=== PATIENT | female | born 1935 | race Caucasian/White ===

== ENCOUNTER 2016-08-29 01:19 | Inpatient (IN) | payer MEDICARE, BC ==
--- NOTE | 2016-08-29 01:35 | EDM.PDOC ---
ED HISTORY OF PRESENT ILLNESS - General Stated Complaint: COMING BY AMBULANCE Time Seen by Provider: 08/29/16 01:20 Source of Information: Reports: Patient, EMS History Limitations: Reports: Respiratory distress - History of Present Illness INITIAL COMMENTS - FREE TEXT/NARRATIVE: This 81 yo female patient was brought to the ED by [facility] and [facility] due to increased shortness of breath. The patient reports her shortness of breath started yesterday morning and has been getting worse since that time. Upon arrival at the [facility] area, EMS reports the patient's oxygen saturation was 79%. EMS initially placed the patient no a nasal cannula at 3 lpm, changed to a non-rebreather mask at 15 lpm (brought saturation up to 90%), and then started the patient on CPAP (increased her saturation to upper 90's). By the time the patient arrived in the ED, the patient was speaking in full sentences with out difficulties. The patient has a history of a fib, and COPD. The patient does have a defibrillator inplanted. Symptom Onset Date: 08/28/16 Timing/Duration: Reports: Constant, Getting worse Severity: moderate Location, General: Reports: generalized Quality: Reports: Other Improves with: Reports: Other (CPAP) Worsens with: Reports: Movement Associated Symptoms (General): Reports: shortness of breath, weakness Treatments RESIDENTIAL TECH: Reports: Breathing treatments, Oxygen - Related Data Allergies/ADRs: Allergies Allergy/AdvReac Type Severity Reaction Status Date / Time No Known Allergies Allergy Verified 08/29/16 01:24 Home Meds: Home Meds Albuterol [Proair HFA] 2 oz PO QID PRN 06/13/14 [History] Digoxin [Digoxin] 125 mcg PO DAILY 06/13/14 [History] Furosemide [Furosemide] 20 mg PO DAILY 06/13/14 [History] Levothyroxine 112 mcg PO DAILY 06/13/14 [History] Warfarin [Coumadin] 4 mg PO ASDIRECTED 06/13/14 [History] Lisinopril 10 mg PO DAILY 08/29/16 [History] Metoprolol Succinate 100 mg PO DAILY 08/29/16 [History] Simvastatin [Simvastatin] 20 mg PO DAILY 08/29/16 [History] Spironolactone [Aldactone] 25 mg PO DAILY 08/29/16 [History] Past Medical History Cardiovascular History: Reports: Bacterial endocarditis, Heart Failure Respiratory History: Reports: None Genitourinary History: Reports: None Musculoskeletal History: Reports: None Neurological History: Reports: None Psychiatric History: Reports: None Endocrine/Metabolic History: Reports: None Hematologic History: Reports: None Immunologic History: Reports: None Oncologic (Cancer) History: Reports: None Dermatologic History: Reports: None - Infectious Disease History Infectious Disease History: Reports: Chicken pox, Measles, Mumps - Past Surgical History Cardiovascular Surgical History: Reports: AICD Respiratory Surgical History: Reports: None GI Surgical History: Reports: Cholecystectomy, Other (see below) Other GI Surgeries/Procedures: mass removed from abdomen, pt unsure of what it was Female Surgical History: Reports: None Endocrine Surgical History: Reports: None Neurological Surgical History: Reports: None Musculoskeletal Surgical History: Reports: None Oncologic Surgical History: Reports: None Dermatological Surgical History: Reports: None Social & Family History - Family History Family Medical History: Noncontributory - Tobacco Use Smoking Status *Q: Current Every Day Smoker Years of Tobacco use: 60 Packs/Tins Daily: 1 - Recreational Drug Use Recreational Drug Use: No ED ROS GENERAL - Review of Systems Review Of Systems: ROS reveals no pertinent complaints other than HPI. ED EXAM, GENERAL - Physical Exam Exam: See Below Exam Limited By: No limitations General Appearance: alert, WD/WN, moderate distress, thin Eye Exam: bilateral eye: EOMI, normal inspection, PERRL Ears: normal external exam, normal canal, hearing grossly normal, normal TMs Nose: normal inspection, normal mucosa, no blood Throat/Mouth: Normal inspection, Normal lips, Normal teeth, Normal gums, Normal oropharynx, Normal voice, No airway compromise Head: atraumatic, normocephalic Neck: normal inspection, supple, non-tender, full range of motion Respiratory/Chest: decreased breath sounds Cardiovascular: tachycardia, irregularly irregular GI/Abdominal: normal bowel sounds, soft, non tender, no organomegaly, no distention, no abnormal bruit, no mass (Female) Exam: Deferred Rectal (Female) Exam: Deferred Back Exam: normal inspection Extremities: pedal edema (2+ bilateral lower extremities) Neurological: alert, oriented, CN II-XII intact, normal cognition, normal gait, normal reflexes, no motor/sensory deficits Psychiatric: normal affect, normal mood Skin Exam: Warm, Dry, Intact, Normal color, No rash Lymphatic: no adenopathy Course - Vital Signs Last Recorded V/S: Last Vital Signs Temp 38.0 C 08/29/16 01:19 Pulse 123 H 08/29/16 02:00 Resp 23 H 08/29/16 01:19 BP 92/73 08/29/16 02:00 Pulse Ox 95 08/29/16 01:19 - Orders/Labs/Meds Orders: Active Orders 24 hr Category Date Time Status EKG Documentation Completion [RC] URGENT Care 08/29/16 01:20 Active RT BiPAP/CPAP [RC] ASDIRECTED Care 08/29/16 02:01 Active Chest 1V Frontal [CR] Urgent Exams 08/29/16 01:21 Taken CULTURE BLOOD [BC] Stat Lab 08/29/16 01:25 Received CULTURE BLOOD [BC] Stat Lab 08/29/16 01:30 Results Diltiazem [Cardizem] 100 mg Med 08/29/16 02:00 Active Sodium Chloride 0.9% [Normal Saline] 100 ml IV TITRATE Sodium Chloride 0.9% [Normal Saline] 1,000 ml Med 08/29/16 02:15 Active IV ASDIRECTED Blood Culture x2 Reflex Set [OM.PC] Stat Oth 08/29/16 01:20 Ordered Medication Orders Diltiazem HCl 100 mg/ Sodium (Chloride) 100 mls @ 5 mls/hr IV TITRATE EMMETT; 5 MG /HR PRN Reason: Protocol Last Admin: 08/29/16 02:00 Dose: 5 mls/hr Sodium Chloride (Normal Saline) 1,000 mls @ 50 mls/hr IV ASDIRECTED EMMETT Last Admin: 08/29/16 02:08 Dose: 50 mls/hr Labs: Laboratory Tests 08/29/16 08/29/16 08/29/16 Range/Units 01:25 01:25 01:25 WBC (5.0-10.0) 10^3/uL RBC (4.2-5.4) 10^6/uL Hgb (12.0-16.0) g/dL Hct (37.0-47.0) % MCV (80-100) fL MCH (27.0-34.0) pg MCHC (33.0-35.0) g/dL Plt Count (150-450) 10^3/uL Neut % (Auto) (42.2-75.2) % Lymph % (Auto) (20.5-50.1) % [place] % (Auto) (2-8) % Eos % (Auto) (1.0-3.0) % Baso % (Auto) (0.0-1.0) % PT 23.3 H (9.0-12.0) SEC INR 2.3 H (0.9-1.2) ABG pH (7.35-7.45) ABG pCO2 (35-45) mmHg ABG pO2 (70-100) mmHg ABG HCO3 (22-26) mmol/L ABG O2 Saturation (95-100) % ABG Base Excess ((-2)-(+3)) mmol/L Caleb Test O2 Delivery Device Sodium (135-145) mmol/L Potassium (3.6-5.0) mmol/L Chloride (101-111) mmol/L Carbon Dioxide (21.0-31.0) mmol/L Anion Gap BUN (7-18) mg/dL Creatinine (0.6-1.3) mg/dL Est Cr Clr Drug Dosing mL/min Estimated GFR (MDRD) BUN/Creatinine Ratio Glucose (74-105) mg/dL Lactic Acid 1.1 (0.5-2.2) mmol/L Calcium (8.4-10.2) mg/dl Total Bilirubin (0.2-1.0) mg/dL AST (10-42) IU/L ALT (10-60) IU/L Alkaline Phosphatase (42-121) IU/L Troponin I (0.00-0.02) ng/ml B-Natriuretic Peptide 175 H (0-100) pg/ml Total Protein (6.7-8.2) g/dl Albumin (3.2-5.5) g/dl Globulin Albumin/Globulin Ratio Digoxin (0-2.5) ng/ml 08/29/16 08/29/16 08/29/16 Range/Units 01:25 01:25 01:25 WBC 5.0 (5.0-10.0) 10^3/uL RBC 3.84 L (4.2-5.4) 10^6/uL Hgb 12.8 (12.0-16.0) g/dL Hct 38.3 (37.0-47.0) % MCV 99.7 (80-100) fL MCH 33.3 (27.0-34.0) pg MCHC 33.4 (33.0-35.0) g/dL Plt Count 139 L (150-450) 10^3/uL Neut % (Auto) 93.2 H (42.2-75.2) % Lymph % (Auto) 6.0 L (20.5-50.1) % [place] % (Auto) 0.2 L (2-8) % Eos % (Auto) 0.4 L (1.0-3.0) % Baso % (Auto) 0.2 (0.0-1.0) % PT (9.0-12.0) SEC INR (0.9-1.2) ABG pH (7.35-7.45) ABG pCO2 (35-45) mmHg ABG pO2 (70-100) mmHg ABG HCO3 (22-26) mmol/L ABG O2 Saturation (95-100) % ABG Base Excess ((-2)-(+3)) mmol/L Caleb Test O2 Delivery Device Sodium 139 (135-145) mmol/L Potassium 3.7 (3.6-5.0) mmol/L Chloride 103 (101-111) mmol/L Carbon Dioxide 30.0 (21.0-31.0) mmol/L Anion Gap 9.7 BUN 16 (7-18) mg/dL Creatinine 0.8 (0.6-1.3) mg/dL Est Cr Clr Drug Dosing 50.94 mL/min Estimated GFR (MDRD) > 60 BUN/Creatinine Ratio 20.00 Glucose 110 H (74-105) mg/dL Lactic Acid (0.5-2.2) mmol/L Calcium 8.6 (8.4-10.2) mg/dl Total Bilirubin 0.6 (0.2-1.0) mg/dL AST 25 (10-42) IU/L ALT 21 (10-60) IU/L Alkaline Phosphatase 70 (42-121) IU/L Troponin I 0.02 (0.00-0.02) ng/ml B-Natriuretic Peptide (0-100) pg/ml Total Protein 6.9 (6.7-8.2) g/dl Albumin 3.9 (3.2-5.5) g/dl Globulin 3.0 Albumin/Globulin Ratio 1.30 Digoxin 0.8 (0-2.5) ng/ml 08/29/16 Range/Units 02:17 WBC (5.0-10.0) 10^3/uL RBC (4.2-5.4) 10^6/uL Hgb (12.0-16.0) g/dL Hct (37.0-47.0) % MCV (80-100) fL MCH (27.0-34.0) pg MCHC (33.0-35.0) g/dL Plt Count (150-450) 10^3/uL Neut % (Auto) (42.2-75.2) % Lymph % (Auto) (20.5-50.1) % [place] % (Auto) (2-8) % Eos % (Auto) (1.0-3.0) % Baso % (Auto) (0.0-1.0) % PT (9.0-12.0) SEC INR (0.9-1.2) ABG pH 7.36 (7.35-7.45) ABG pCO2 49 H (35-45) mmHg ABG pO2 79 (70-100) mmHg ABG HCO3 27.0 H (22-26) mmol/L ABG O2 Saturation 95 (95-100) % ABG Base Excess 1 ((-2)-(+3)) mmol/L Caleb Test Positive O2 Delivery Device Cpap Sodium (135-145) mmol/L Potassium (3.6-5.0) mmol/L Chloride (101-111) mmol/L Carbon Dioxide (21.0-31.0) mmol/L Anion Gap BUN (7-18) mg/dL Creatinine (0.6-1.3) mg/dL Est Cr Clr Drug Dosing mL/min Estimated GFR (MDRD) BUN/Creatinine Ratio Glucose (74-105) mg/dL Lactic Acid (0.5-2.2) mmol/L Calcium (8.4-10.2) mg/dl Total Bilirubin (0.2-1.0) mg/dL AST (10-42) IU/L ALT (10-60) IU/L Alkaline Phosphatase (42-121) IU/L Troponin I (0.00-0.02) ng/ml B-Natriuretic Peptide (0-100) pg/ml Total Protein (6.7-8.2) g/dl Albumin (3.2-5.5) g/dl Globulin Albumin/Globulin Ratio Digoxin (0-2.5) ng/ml Meds: Medications Generic Name Dose Route Start Last Admin Trade Name Freq PRN Reason Stop Dose Admin Diltiazem HCl 100 mg/ Sodium 100 mls @ 5 mls/hr 08/29/16 02:00 08/29/16 02:00 Chloride IV 5 mls/hr TITRATE EMMETT Administration Protocol 5 MG/HR Sodium Chloride 1,000 mls @ 50 mls/hr 08/29/16 02:15 08/29/16 02:08 Normal Saline IV 50 mls/hr ASDIRECTED EMMETT Administration Discontinued Medications Generic Name Dose Route Start Last Admin Trade Name Freq PRN Reason Stop Dose Admin Diltiazem HCl 10 mg 08/29/16 01:36 08/29/16 01:39 Diltiazem IVPUSH 08/29/16 01:37 10 mg ONETIME ONE Administration Departure - Departure Time of Disposition: 02:44 Disposition: Admitted As Inpatient 66 Condition: poor Clinical Impression: Atrial fibrillation with RVR Care Plan Goals: Discussed the examination, lab, EKG and x-ray results with Dr. Bocanegra. Dr. Bocanegra came to the ED to evaluate the patient. Dr. Bocanegra accepted the patient for continued evaluation and further management as an inpatient at [facility]. - My Orders Last 24 Hours: My Active Orders 08/29/16 01:20 EKG Documentation Completion [RC] URGENT Blood Culture x2 Reflex Set [OM.PC] Stat 08/29/16 01:21 Chest 1V Frontal [CR] Urgent 08/29/16 01:25 CULTURE BLOOD [BC] Stat 08/29/16 01:30 CULTURE BLOOD [BC] Stat 08/29/16 02:00 Diltiazem [Cardizem] 100 mg Sodium Chloride 0.9% [Normal Saline] 100 ml IV TITRATE 08/29/16 02:01 RT BiPAP/CPAP [RC] ASDIRECTED 08/29/16 02:15 Sodium Chloride 0.9% [Normal Saline] 1,000 ml IV ASDIRECTED - Assessment/Plan Last 24 Hours: My Active Orders 08/29/16 01:20 EKG Documentation Completion [RC] URGENT Blood Culture x2 Reflex Set [OM.PC] Stat 08/29/16 01:21 Chest 1V Frontal [CR] Urgent 08/29/16 01:25 CULTURE BLOOD [BC] Stat 08/29/16 01:30 CULTURE BLOOD [BC] Stat 08/29/16 02:00 Diltiazem [Cardizem] 100 mg Sodium Chloride 0.9% [Normal Saline] 100 ml IV TITRATE 08/29/16 02:01 RT BiPAP/CPAP [RC] ASDIRECTED 08/29/16 02:15 Sodium Chloride 0.9% [Normal Saline] 1,000 ml IV ASDIRECTED
[2016-08-29] MEDS ORDERED: Diltiazem 25 MG/5 ML SDV IVPUSH ONE (01:36)
[2016-08-29 01:54] LABS: CHLORIDE,CL 103 mmol/L (101-111); SODIUM,NA 139 mmol/L (135-145)
[2016-08-29] MEDS ORDERED: Diltiazem 100 MG in Sodium Chloride 0.9% 100 ML IV SCH (02:00)
[2016-08-29] MEDS ORDERED: Sodium Chloride 0.9% 1,000 ML IV SCH (02:15)
[2016-08-29 02:30] LABS: BASE EXCESS ARTERIAL 1 mmol/L ((-2)-(+3)); O2 DELIVERY DEVICE CPAP; O2 SATURATION ARTERIAL 95 % (95-100); PCO2 ARTERIAL 49 mmHg (35-45); PO2 ARTERIAL 79 mmHg (70-100)
[2016-08-29 02:31] LABS: ALLEN TEST POSITIVE
[2016-08-29] MEDS ORDERED: Albuterol 6.7 GM Inhaler INH PRN (03:01)
[2016-08-29] MEDS ORDERED: Docusate Sodium 100 MG Cap PO PRN (03:09)
[2016-08-29] MEDS ORDERED: Ondansetron 4 MG Tab.DIS PO PRN (03:09)
[2016-08-29] MEDS ORDERED: Zolpidem 5 MG Tab PO PRN (03:09)
--- NOTE | 2016-08-29 03:18 | PCM.HP ---
H&P History of Present Illness - General Date of Service: 08/29/16 Admit Problem/Dx: Admission Diagnosis/Problem Admission Diagnosis/Problem Afib, Atrial fibrillation Source of Information: Patient - History of Present Illness Initial Comments - Free Text/Narative: 81 year-old patient with the history of nonischemic cardiomyopathy, systolic congestive heart failure, atrial fibrillation, She has been having mild sore throat and nasal drainage Her had similar symptoms no fever Last evening developed sudden onset of moderate to severe shortness of breath, associated with palpitation. No chest pain, no lightheadedness The patient was seen by ambulance crew noted to have rapid atrial fibrillation She was noted to have hypoxemia and was started on CPAP In the ER the patient was started on Cardizem drip and the heart rate has improved - Related Data Allergies/Adverse Reactions: Allergies Allergy/AdvReac Type Severity Reaction Status Date / Time No Known Allergies Allergy Verified 08/29/16 01:24 Home Medications: Home Meds Albuterol [Proair HFA] 2 oz PO QID PRN 06/13/14 [History] Digoxin [Digoxin] 125 mcg PO DAILY 06/13/14 [History] Furosemide [Furosemide] 20 mg PO DAILY 06/13/14 [History] Levothyroxine 112 mcg PO DAILY 06/13/14 [History] Warfarin [Coumadin] 4 mg PO ASDIRECTED 06/13/14 [History] Lisinopril 10 mg PO DAILY 08/29/16 [History] Metoprolol Succinate 100 mg PO DAILY 08/29/16 [History] Simvastatin [Simvastatin] 20 mg PO DAILY 08/29/16 [History] Spironolactone [Aldactone] 25 mg PO DAILY 08/29/16 [History] Past Medical History Cardiovascular History: Reports: Bacterial endocarditis, Heart Failure Respiratory History: Reports: None Genitourinary History: Reports: None Musculoskeletal History: Reports: None Neurological History: Reports: None Psychiatric History: Reports: None Endocrine/Metabolic History: Reports: None Hematologic History: Reports: None Immunologic History: Reports: None Oncologic (Cancer) History: Reports: None Dermatologic History: Reports: None - Infectious Disease History Infectious Disease History: Reports: Chicken pox, Measles, Mumps - Past Surgical History Cardiovascular Surgical History: Reports: AICD Respiratory Surgical History: Reports: None GI Surgical History: Reports: Cholecystectomy, Other (see below) Other GI Surgeries/Procedures: mass removed from abdomen, pt unsure of what it was Female Surgical History: Reports: None Endocrine Surgical History: Reports: None Neurological Surgical History: Reports: None Musculoskeletal Surgical History: Reports: None Oncologic Surgical History: Reports: None Dermatological Surgical History: Reports: None Social & Family History - Family History Family Medical History: Noncontributory - Tobacco Use Smoking Status *Q: Current Every Day Smoker Years of Tobacco use: 60 Packs/Tins Daily: 1 Second Hand Smoke Exposure: Yes - Recreational Drug Use Recreational Drug Use: No H&P Review of Systems - Review of Systems: Review Of Systems: See Below General: Denies: fever, chills Pulmonary: Reports: Shortness of Breath. Denies: Wheezing Cardiovascular: Denies: chest pain Gastrointestinal: Denies: Abdominal pain Genitourinary: Denies: dysuria Psychiatric: Denies: confusion Exam - Exam Exam: See Below - Vital Signs Vital Signs: Last Vital Signs Temp 38.0 C 08/29/16 01:19 Pulse 123 H 08/29/16 02:00 Resp 23 H 08/29/16 01:19 BP 92/73 08/29/16 02:00 Pulse Ox 94 L 08/29/16 02:47 Weight: 58.513 kg - Exam General: alert, oriented Neck: supple Lungs: Clear to auscultation, Normal respiratory effort Cardiovascular: irregular rhythm, tachycardia Abdomen: normal bowel sounds, soft Extremities: normal inspection. No: edema Skin: warm, dry, intact Neuro Extensive - Mental Status: alert, oriented x3, normal mood/affect, normal cognition Psychiatric: alert, normal affect, normal mood - Patient Data Result Diagrams: 08/29/16 01:25 08/29/16 01:25 EKG INTERPRETATION EKG Date: 08/29/16 Rhythm: a-fib Rate (beats/min): 150 *Q Meaningful Use (ADM) - VTE *Q VTE Criteria *Q: - Stroke *Q Stroke Criteria *Q: - AMI *Q AMI Criteria *Q: - Problem List (1) Atrial fibrillation with RVR SNOMED Code(s): 971793114313525 ICD Code: I48.91 - UNSPECIFIED ATRIAL FIBRILLATION Status: Acute Current Visit: Yes Problem List Initiated/Reviewed/Updated: Yes Orders Last 24hrs: Active Orders 24 hr Category Date Time Status Patient Status [ADT] Routine ADT 08/29/16 03:09 Ordered Antiembolic Devices [RC] PER UNIT ROUTINE Care 08/29/16 03:11 Ordered Oxygen Therapy [RC] PRN Care 08/29/16 03:09 Ordered Peripheral IV Care [RC] . DIRECTED Care 08/29/16 03:11 Ordered Up With Assistance [RC] ASDIRECTED Care 08/29/16 03:09 Ordered VTE/DVT Education [RC] PER UNIT ROUTINE Care 08/29/16 03:09 Ordered Vital Signs [RC] Q4H Care 08/29/16 03:09 Ordered Regular Diet [DIET] Diet 08/29/16 Breakfast Ordered CULTURE SPUTUM + SMEAR [RM] Stat Lab 08/29/16 03:09 Uncollected Acetaminophen [Tylenol] Med 08/29/16 03:09 Ordered 650 mg PO Q4H PRN Docusate Sodium [Colace] Med 08/29/16 03:09 Ordered 100 mg PO BID PRN Ondansetron [Zofran ODT] Med 08/29/16 03:09 Ordered 4 mg PO Q6H PRN Sodium Chloride 0.9% [Saline Flush] Med 08/29/16 03:09 Ordered 10 ml FLUSH ASDIRECTED PRN Zolpidem [Ambien] Med 08/29/16 03:09 Ordered 5 mg PO BEDTIME PRN Peripheral IV Insertion Adult [OM.PC] Routine Oth 08/29/16 03:09 Ordered Saline Lock Insert [OM.PC] Routine Oth 08/29/16 03:09 Ordered Sequential Compression Device [OM.PC] Per Unit Routine Oth 08/29/16 03:10 Ordered Resuscitation Status Routine Resus Stat 08/29/16 03:09 Ordered Medication Orders Acetaminophen (Tylenol) 650 mg PO Q4H PRN PRN Reason: Pain (Mild 1-3)/fever Albuterol (Proventil Hfa) gm INH QID PRN PRN Reason: Shortness of Breath Digoxin (Lanoxin) 125 mcg PO DAILY EMMETT Docusate Sodium (Colace) 100 mg PO BID PRN PRN Reason: Constipation Furosemide (Lasix) 20 mg PO DAILY EMMETT Diltiazem HCl 100 mg/ Sodium (Chloride) 100 mls @ 5 mls/hr IV TITRATE EMMETT; 5 MG /HR PRN Reason: Protocol Last Admin: 08/29/16 02:00 Dose: 5 mls/hr Sodium Chloride (Normal Saline) 1,000 mls @ 50 mls/hr IV ASDIRECTED [facility] Last Admin: 08/29/16 02:08 Dose: 50 mls/hr Levothyroxine Sodium (Levothyroxine) 112 mcg PO DAILY [facility] Lisinopril (Prinivil) 10 mg PO DAILY [facility] Non-Formulary Medication (Metoprolol Succinate [Metoprolol Succinate]) 100 mg PO DAILY [facility] Non-Formulary Medication (Simvastatin [Simvastatin]) 20 mg PO DAILY [facility] Ondansetron HCl (Zofran Odt) 4 mg PO Q6H PRN PRN Reason: nausea, able to take PO Sodium Chloride (Saline Flush) 10 ml FLUSH ASDIRECTED PRN PRN Reason: Keep Vein Open Spironolactone (Aldactone) 25 mg PO DAILY [facility] Warfarin Sodium (Pharmacy To Dose - Warfarin) 1 dose .XX ASDIRECTED [facility] Zolpidem Tartrate (Ambien) 5 mg PO BEDTIME PRN PRN Reason: Sleep Assessment/Plan Comment:: Rapid atrial fibrillation Treat with Cardizem drip, target for heart less than 100 Continue metoprolol for rate control Continue anticoagulation with Coumadin Monitor INR daily, adjust Coumadin for target INR 2-3 Recheck troponin in the morning acute hypoxemic respiratory failure The chest x-ray appears clear Likely due to rapid atrial fibrillation we could take off of the patient's BiPAP she is saturating well on nasal cannula oxygen Will follow oxygen need Upper respiratory tract infection Likely viral Check sputum culture, blood cultures for now we'll hold antibiotics History of COPD No apparent exacerbation, will follow oxygen need, symptoms Dyslipidemia Zocor Chronic systolic congestive heart failure Appears with no acute exacerbation Continue to treat with Lasix, digoxin, lisinopril, spironolactone Hypothyroidism Treatment Synthroid DVT prophylaxis with full dose anticoagulation with Coumadin
[2016-08-29] MEDS ORDERED: Albuterol 0.083% 2.5 MG/3 ML Neb Soln NEB PRN (05:31)
[2016-08-29 06:41] LABS: CHLORIDE,CL 102 mmol/L (101-111); SODIUM,NA 137 mmol/L (135-145)
[2016-08-29] MEDS: Albuterol 0.083% 2.5 MG/3 ML Neb Soln NEB PRN ×3 (08:41→22:17)
[2016-08-29] MEDS: Digoxin 125 MCG Tab PO SCH (08:43)
[2016-08-29] MEDS: Spironolactone 25 MG Tab PO SCH (08:44)
[2016-08-29] MEDS ORDERED: Non-Formulary Medication 1 Each (Metoprolol Succinate [Metoprolol Succinate] 100 MG) PO SCH (09:00)
[2016-08-29] MEDS ORDERED: Levothyroxine 125 MCG Tab PO SCH (09:00)
[2016-08-29] MEDS ORDERED: Non-Formulary Medication 1 Each (Simvastatin [Simvastatin] 20 MG) PO SCH (09:00)
--- NOTE | 2016-08-29 09:11 | PCM.PN ---
- General Info Date of Service: 08/29/16 Admission Dx/Problem (Free Text): Admission Diagnosis/Problem Admission Diagnosis/Problem Afib, Atrial fibrillation Subjective Update: overnight has been on Cardizem drip Heart rate was improving Blood pressure has been on the lower side The patient felt short of breath and the was using albuterol nebulizer as needed Still has mild nasal drainage but no chest pain, no abdominal pain - Review of Systems General: Denies: Fever, Weakness Pulmonary: Reports: shortness of breath. Denies: wheezing Cardiovascular: Denies: Chest Pain Gastrointestinal: Denies: Abdominal pain Genitourinary: Denies: dysuria Neurological: Denies: Confusion, Dizziness - Patient Data Vitals - most recent: Last Vital Signs Temp 37.2 C 08/29/16 07:00 Pulse 84 08/29/16 08:43 Resp 20 08/29/16 07:00 BP 88/35 L 08/29/16 07:08 Pulse Ox 90 L 08/29/16 08:40 Weight - most recent: 62.777 kg I&O - last 24 hours: Intake & Output 08/28/16 08/29/16 08/29/16 22:59 06:59 14:59 Intake Total 500 Balance 500 Lab Results last 24 hrs: Laboratory Results - last 24 hr 08/29/16 08/29/16 08/29/16 Range/Units 05:55 05:55 05:55 WBC 10.0 (5.0-10.0) 10^3/uL RBC 3.52 L (4.2-5.4) 10^6/uL Hgb 11.5 L (12.0-16.0) g/dL Hct 35.9 L (37.0-47.0) % MCV 102.0 H (80-100) fL MCH 32.7 (27.0-34.0) pg MCHC 32.0 L (33.0-35.0) g/dL Plt Count 145 L (150-450) 10^3/uL Neut % (Auto) 95.7 H (42.2-75.2) % Lymph % (Auto) 1.7 L (20.5-50.1) % [place] % (Auto) 2.5 (2-8) % Eos % (Auto) 0.0 L (1.0-3.0) % Baso % (Auto) 0.1 (0.0-1.0) % PT 26.6 H (9.0-12.0) SEC INR 2.6 H (0.9-1.2) Sodium 137 (135-145) mmol/L Potassium 3.6 (3.6-5.0) mmol/L Chloride 102 (101-111) mmol/L Carbon Dioxide 28.0 (21.0-31.0) mmol/L Anion Gap 10.6 BUN 17 (7-18) mg/dL Creatinine 0.8 (0.6-1.3) mg/dL Est Cr Clr Drug Dosing 53.63 mL/min Estimated GFR (MDRD) > 60 Glucose 121 H (74-105) mg/dL Calcium 8.1 L (8.4-10.2) mg/dl Troponin I 0.03 H* (0.00-0.02) ng/ml Med Orders - Current: Current Medications Acetaminophen (Tylenol) 650 mg PO Q4H PRN PRN Reason: Pain (Mild 1-3)/fever Albuterol (Proventil Neb Soln) 2.5 mg NEB QIDRT PRN PRN Reason: Dyspnea Last Admin: 08/29/16 08:41 Dose: 2.5 mg Budesonide (Pulmicort) 0.5 mg NEB BIDRT [facility] Digoxin (Lanoxin) 125 mcg PO DAILY [facility] Last Admin: 08/29/16 08:43 Dose: 125 mcg Docusate Sodium (Colace) 100 mg PO BID PRN PRN Reason: Constipation Furosemide (Lasix) 20 mg PO DAILY [facility] Diltiazem HCl 100 mg/ Sodium (Chloride) 100 mls @ 5 mls/hr IV TITRATE EMMETT; 5 MG /HR PRN Reason: Protocol Last Admin: 08/29/16 02:00 Dose: 5 mls/hr Levothyroxine Sodium (Levothyroxine) 112 mcg PO ACBRK [facility] Lisinopril (Prinivil) 10 mg PO DAILY [facility] Non-Formulary Medication (Metoprolol Succinate [Metoprolol Succinate]) 100 mg PO DAILY [facility] Non-Formulary Medication (Simvastatin [Simvastatin]) 20 mg PO DAILY [facility] Ondansetron HCl (Zofran Odt) 4 mg PO Q6H PRN PRN Reason: nausea, able to take PO Sodium Chloride (Saline Flush) 10 ml FLUSH ASDIRECTED PRN PRN Reason: Keep Vein Open Spironolactone (Aldactone) 25 mg PO DAILY [facility] Last Admin: 08/29/16 08:44 Dose: 25 mg Warfarin Sodium (Pharmacy To Dose - Warfarin) 1 dose .XX ASDIRECTED [facility] Zolpidem Tartrate (Ambien) 5 mg PO BEDTIME PRN PRN Reason: Sleep Discontinued Medications Albuterol (Proventil Neb Soln) 2.5 mg NEB Q4HRRT PRN PRN Reason: Dyspnea Last Admin: 08/29/16 05:39 Dose: 2.5 mg Diltiazem HCl (Diltiazem) 10 mg IVPUSH ONETIME ONE Stop: 08/29/16 01:37 Last Admin: 08/29/16 01:39 Dose: 10 mg Sodium Chloride (Normal Saline) 1,000 mls @ 50 mls/hr IV ASDIRECTED [facility] Last Admin: 08/29/16 02:08 Dose: 50 mls/hr Levothyroxine Sodium (Levothyroxine) 112 mcg PO DAILY [facility] - Exam Quality Assessment: supplemental oxygen General: alert, oriented Neck: supple Lungs: Normal respiratory effort, Decreased breath sounds. No: Rales, Wheezing Cardiovascular: Irregular Rhythm. No: Tachycardia Abdomen: bowel sounds present, soft, no tenderness, no distension Extremities: no edema Skin: warm, dry, intact Neurological: no new focal deficit Psy/Mental Status: alert, normal affect, normal mood - Problem List & Annotations (1) Atrial fibrillation with RVR SNOMED Code(s): 997049491758927 Code(s): I48.91 - UNSPECIFIED ATRIAL FIBRILLATION Status: Acute Current Visit: Yes - Problem List Review Problem List Initiated/Reviewed/Updated: Yes - My Orders Last 24 Hours: My Active Orders 08/29/16 05:31 RT Aerosol Therapy [RC] ASDIRECTED 08/29/16 07:33 Albuterol [Proventil Neb Soln] 2.5 mg NEB QIDRT PRN 08/29/16 07:34 RT Aerosol Therapy [RC] ASDIRECTED 08/29/16 09:00 Levothyroxine 112 mcg PO ACBRK 08/29/16 09:04 RT Aerosol Therapy [RC] ASDIRECTED 08/29/16 09:15 Budesonide [Pulmicort] 0.5 mg NEB BIDRT - Plan Plan:: Rapid atrial fibrillation Treated with Cardizem drip, heart rate has improved, we will stop the drip Continue metoprolol for rate control if the blood pressure is okay Continue with digoxin for rate control Continue anticoagulation with Coumadin Monitor INR daily, adjust Coumadin for target INR 2-3 Recheck troponin in the morning acute hypoxemic respiratory failure The chest x-ray appears clear Likely due to rapid atrial fibrillation she is saturating well on nasal cannula oxygen taper off the oxygen Will follow oxygen need Upper respiratory tract infection Likely viral Sputum culture, blood cultures pending for now we'll hold antibiotics History of COPD due to the upper respiratory tract infection I will add Pulmicort will follow oxygen need, symptoms Dyslipidemia Zocor Chronic systolic congestive heart failure Appears with no acute exacerbation Continue to treat with Lasix, digoxin, lisinopril, spironolactone if the blood pressure is a little higher after stopping the Cardizem Hypothyroidism Treatment Synthroid DVT prophylaxis with full dose anticoagulation with Coumadin
[2016-08-29] MEDS: Furosemide 20 MG Tab PO SCH (10:21)
[2016-08-29] MEDS: Lisinopril 10 MG Tab PO SCH (10:21)
[2016-08-29] MEDS: Metoprolol Succinate 50 MG Tab.ER PO SCH (10:22)
[2016-08-29] MEDS: Levothyroxine 112 MCG Tab PO SCH (10:32)
[2016-08-29] MEDS: Simvastatin 10 MG Tab PO SCH (10:33)
[2016-08-29] MEDS: Budesonide 0.5 MG/2 ML Neb Susp NEB SCH ×2 (10:35→18:33)
[2016-08-29] MEDS ORDERED: Warfarin 2 MG Tab PO ONE (14:00)
[2016-08-29] MEDS: Acetaminophen 325 MG Tab PO PRN (21:07)
[2016-08-30] MEDS: Albuterol 0.083% 2.5 MG/3 ML Neb Soln NEB PRN ×2 (02:41→07:34)
[2016-08-30 07:02] LABS: CHLORIDE,CL 104 mmol/L (101-111); SODIUM,NA 138 mmol/L (135-145)
[2016-08-30] MEDS: Budesonide 0.5 MG/2 ML Neb Susp NEB SCH ×2 (07:32→18:12)
[2016-08-30] MEDS: Levothyroxine 112 MCG Tab PO SCH (07:50)
[2016-08-30] MEDS: Digoxin 125 MCG Tab PO SCH (10:05)
[2016-08-30] MEDS: Lisinopril 10 MG Tab PO SCH (10:05)
[2016-08-30] MEDS: Simvastatin 10 MG Tab PO SCH (10:06)
[2016-08-30] MEDS: Furosemide 20 MG Tab PO SCH (10:06)
[2016-08-30] MEDS: Spironolactone 25 MG Tab PO SCH (10:07)
[2016-08-30] MEDS: Metoprolol Succinate 50 MG Tab.ER PO SCH (10:07)
[2016-08-30] MEDS ORDERED: LORazepam 0.5 MG Tab PO PRN (10:43)
--- NOTE | 2016-08-30 10:47 | PCM.PN ---
- General Info Date of Service: 08/30/16 Admission Dx/Problem (Free Text): Admission Diagnosis/Problem Admission Diagnosis/Problem Afib, Atrial fibrillation, shortness of breath Subjective Update: visit state that she feels the same. She still complained of shortness of breath with occasional congestive cough. She admits having headache, upset stomach, nausea, anxiousness. She denies fever, chills, chest pain, vomiting. Patient admitted to me that she increase about 9 pounds within the last one week. She admitted having increasing lower extremity swelling bilaterally and retaining fluids. Her Cardizem was stopped yesterday because her systolic blood pressure dropped to the 70s. She is still complaining of nasal congestion albuterol nebulizer is helping her shortness of breath for short time - Patient Data Vitals - most recent: Last Vital Signs Temp 37.0 C 08/30/16 07:51 Pulse 113 H 08/30/16 10:07 Resp 24 H 08/30/16 07:51 BP 119/71 08/30/16 10:07 Pulse Ox 92 L 08/30/16 07:51 Weight - most recent: 63.049 kg I&O - last 24 hours: Intake & Output 08/29/16 08/30/16 08/30/16 22:59 06:59 14:59 Intake Total 1857 350 Output Total 675 800 Balance 1182 -450 Lab Results last 24 hrs: Laboratory Results - last 24 hr 08/30/16 08/30/16 08/30/16 Range/Units 06:00 06:00 06:00 WBC 5.7 (5.0-10.0) 10^3/uL RBC 3.46 L (4.2-5.4) 10^6/uL Hgb 11.3 L (12.0-16.0) g/dL Hct 35.4 L (37.0-47.0) % MCV 102.3 H (80-100) fL MCH 32.7 (27.0-34.0) pg MCHC 31.9 L (33.0-35.0) g/dL Plt Count 126 L (150-450) 10^3/uL Neut % (Auto) 78.6 H (42.2-75.2) % Lymph % (Auto) 11.9 L (20.5-50.1) % [place] % (Auto) 7.5 (2-8) % Eos % (Auto) 1.6 (1.0-3.0) % Baso % (Auto) 0.4 (0.0-1.0) % PT 28.1 H (9.0-12.0) SEC INR 2.8 H (0.9-1.2) Sodium 138 (135-145) mmol/L Potassium 4.0 (3.6-5.0) mmol/L Chloride 104 (101-111) mmol/L Carbon Dioxide 30.0 (21.0-31.0) mmol/L Anion Gap 8.0 BUN 13 (7-18) mg/dL Creatinine 0.7 (0.6-1.3) mg/dL Est Cr Clr Drug Dosing 61.29 mL/min Estimated GFR (MDRD) > 60 Glucose 110 H (74-105) mg/dL Calcium 8.6 (8.4-10.2) mg/dl Med Orders - Current: Current Medications Acetaminophen (Tylenol) 650 mg PO Q4H PRN PRN Reason: Pain (Mild 1-3)/fever Last Admin: 08/29/16 21:07 Dose: 650 mg Albuterol (Proventil Neb Soln) 2.5 mg NEB Q6H EMMETT Budesonide (Pulmicort) 0.5 mg NEB BIDRT [facility] Last Admin: 08/30/16 07:32 Dose: 0.5 mg Digoxin (Lanoxin) 125 mcg PO DAILY [facility] Last Admin: 08/30/16 10:05 Dose: 125 mcg Docusate Sodium (Colace) 100 mg PO BID PRN PRN Reason: Constipation Furosemide (Lasix) 20 mg PO DAILY [facility] Last Admin: 08/30/16 10:06 Dose: 20 mg Furosemide (Lasix) 40 mg IVPUSH Q8H [facility] Stop: 08/31/16 02:46 Diltiazem HCl 100 mg/ Sodium (Chloride) 100 mls @ 5 mls/hr IV TITRATE EMMETT; 5 MG /HR PRN Reason: Protocol Last Admin: 08/29/16 02:00 Dose: 5 mls/hr Ceftriaxone Sodium 1 gm/ (Sodium Chloride) 50 mls @ 100 mls/hr IV Q24H [facility] Levothyroxine Sodium (Levothyroxine) 112 mcg PO ACBRK [facility] Last Admin: 08/30/16 07:50 Dose: 112 mcg Lisinopril (Prinivil) 10 mg PO DAILY [facility] Last Admin: 08/30/16 10:05 Dose: 10 mg Methylprednisolone Sodium Succinate (Solu-Medrol) 125 mg IVPUSH Q12H [facility] Metoprolol Succinate (Toprol Xl) 100 mg PO DAILY [facility] Last Admin: 08/30/16 10:07 Dose: 100 mg Ondansetron HCl (Zofran Odt) 4 mg PO Q6H PRN PRN Reason: nausea, able to take PO Last Admin: 08/30/16 02:39 Dose: 4 mg Simvastatin (Zocor) 20 mg PO DAILY [facility] Last Admin: 08/30/16 10:06 Dose: 20 mg Sodium Chloride (Saline Flush) 10 ml FLUSH ASDIRECTED PRN PRN Reason: Keep Vein Open Spironolactone (Aldactone) 25 mg PO DAILY [facility] Last Admin: 08/30/16 10:07 Dose: 25 mg Warfarin Sodium (Pharmacy To Dose - Warfarin) 1 dose .XX ASDIRECTED [facility] Warfarin Sodium (Coumadin) 6 mg PO ONETIME ONE Stop: 08/30/16 14:01 Zolpidem Tartrate (Ambien) 5 mg PO BEDTIME PRN PRN Reason: Sleep Discontinued Medications Albuterol (Proventil Neb Soln) 2.5 mg NEB Q4HRRT PRN PRN Reason: Dyspnea Last Admin: 08/29/16 05:39 Dose: 2.5 mg Albuterol (Proventil Neb Soln) 2.5 mg NEB QIDRT PRN PRN Reason: Dyspnea Last Admin: 08/30/16 07:34 Dose: 2.5 mg Diltiazem HCl (Diltiazem) 10 mg IVPUSH ONETIME ONE Stop: 08/29/16 01:37 Last Admin: 08/29/16 01:39 Dose: 10 mg Sodium Chloride (Normal Saline) 1,000 mls @ 50 mls/hr IV ASDIRECTED [facility] Last Infusion: 08/29/16 22:16 Dose: Infused Levothyroxine Sodium (Levothyroxine) 112 mcg PO DAILY [facility] Non-Formulary Medication (Metoprolol Succinate [Metoprolol Succinate]) 100 mg PO DAILY [facility] Last Admin: 08/29/16 10:36 Dose: Not Given Non-Formulary Medication (Simvastatin [Simvastatin]) 20 mg PO DAILY [facility] Last Admin: 08/29/16 10:36 Dose: Not Given Warfarin Sodium (Pharmacy To Dose - Warfarin) 1 dose .XX ASDIRECTED [facility] Warfarin Sodium (Coumadin) 6 mg PO ONETIME ONE Stop: 08/29/16 14:01 Last Admin: 08/29/16 13:20 Dose: 6 mg - Exam General: alert, oriented, cooperative, mild distress (from shortness of breath and anxiousness) HEENT: Pupils equal, Pupils reactive, EOMI, Mucous membr. moist/pink Neck: supple, trachea midline Lungs: Decreased breath sounds (mostly right lower base), Rhonchi, Wheezing ( inspiratory and expiratory, diffuse). No: Crackles, Rales, Rub, Stridor Cardiovascular: Irregular Rhythm. No: Rubs Abdomen: bowel sounds present, soft, no tenderness, no distension. No: rigidity , rebound, guarding, tenderness, distension, CVA tenderness, organomegaly (Female) Exam: Deferred Back Exam: normal inspection Extremities: normal pulses, no tenderness/swelling, no clubbing, no cyanosis, edema (2+ bilateral lower extremities) Skin: warm, dry, intact Neurological: no new focal deficit Psy/Mental Status: alert, normal affect, anxious. No: suicidal ideation, homicidal ideation, hallucinations - Problem List Review Problem List Initiated/Reviewed/Updated: Yes - My Orders Last 24 Hours: My Active Orders 08/30/16 06:00 TROPONIN I [CHEM] Routine TSH ULTRASENSITIVE [CHEM] Routine 08/30/16 10:40 Consult to Pharmacy [CONS] Routine 08/30/16 10:45 Albuterol [Proventil Neb Soln] 2.5 mg NEB Q6H Furosemide [Lasix] 40 mg IVPUSH Q8H cefTRIAXone [Rocephin] 1 gm Sodium Chloride 0.9% [Normal Saline] 50 ml IV Q24H methylPREDNISolone Sod Succ [Solu-MEDROL] 125 mg IVPUSH Q12H 08/31/16 05:11 CXR [Chest 2V] [CR] AM BASIC METABOLIC PANEL,BMP [CHEM] AM - Plan Plan:: Rapid atrial fibrillation with RVR Treated with Cardizem drip, heart rate has improved, Cardizem was stopped on due to decrease in systolic blood pressure Continue metoprolol for rate control if the blood pressure is okay Continue with digoxin for rate control Continue anticoagulation with Coumadin Monitor INR daily, adjust Coumadin for target INR 2-3 repeat the troponin is negative Probable acute congestive systolic heart failure last echocardiogram was done last April which showed ejection fraction of 25% -I will start Lasix 40 mg IV every 8 hours for 3 doses in addition to her oral Lasix daily Weight Strict I&O was Fluid restriction to 1800 cc per hour low-sodium diet Acute hypoxemic respiratory failure with probable acute exacerbation of COPD chest x-ray shows no acute findings on admission Likely due to rapid atrial fibrillation and/or congestive heart failure and/or COPD exacerbation patient was advised to quit smoking nasal oxygen as needed -repeat chest x-ray tomorrow -albuterol nebulizer every 6 hours scheduled -Start IV steroids and empirical ceftriaxone for possible acute exacerbation of COPD -continue his Pulmicort ( was started on admission) sinus congestion And upper respiratory tract infection Start IV ceftriaxone anxiousness We'll give Ativan as needed Dyslipidemia Zocor Hypothyroidism Treatment Synthroid DVT prophylaxis with full dose anticoagulation with Coumadin 36 minutes were spent, more than half of it on counseling
[2016-08-30] MEDS: Albuterol 0.083% 2.5 MG/3 ML Neb Soln NEB SCH ×3 (11:06→18:11)
[2016-08-30] MEDS: methylPREDNISolone Sodium Succinate 125 MG/2 ML SDV IVPUSH SCH ×2 (11:14→21:21)
[2016-08-30] MEDS: Furosemide 40 MG/4 ML VIAL IVPUSH SCH ×2 (11:14→18:13)
[2016-08-30] MEDS ORDERED: Albuterol 0.083% 2.5 MG/3 ML Neb Soln NEB PRN (11:16)
[2016-08-30] MEDS ORDERED: guaiFENesin 600 MG Tab.ER PO PRN (11:17)
[2016-08-30] MEDS: cefTRIAXone 1 GM in Sodium Chloride 0.9% 50 ML IV SCH (11:50)
[2016-08-30] MEDS ORDERED: Warfarin 2 MG Tab PO ONE (14:00)
[2016-08-31] MEDS: Furosemide 40 MG/4 ML VIAL IVPUSH SCH (03:54)
[2016-08-31] MEDS: Albuterol 0.083% 2.5 MG/3 ML Neb Soln NEB SCH ×4 (03:57→17:08)
[2016-08-31 07:03] LABS: CHLORIDE,CL 95 mmol/L (101-111); SODIUM,NA 137 mmol/L (135-145)
[2016-08-31] MEDS: Levothyroxine 112 MCG Tab PO SCH (07:11)
[2016-08-31] MEDS: Budesonide 0.5 MG/2 ML Neb Susp NEB SCH ×2 (07:22→18:21)
[2016-08-31] MEDS: Digoxin 125 MCG Tab PO SCH (08:34)
[2016-08-31] MEDS: Furosemide 20 MG Tab PO SCH (08:34)
[2016-08-31] MEDS: Spironolactone 25 MG Tab PO SCH (08:34)
[2016-08-31] MEDS: Simvastatin 10 MG Tab PO SCH (08:35)
[2016-08-31] MEDS: Metoprolol Succinate 50 MG Tab.ER PO SCH (08:39)
[2016-08-31] MEDS: Lisinopril 10 MG Tab PO SCH (08:40)
[2016-08-31] MEDS: methylPREDNISolone Sodium Succinate 125 MG/2 ML SDV IVPUSH SCH (08:41)
[2016-08-31] MEDS: Sodium Chloride 0.9% 10 ML Syringe FLUSH PRN ×2 (08:41→11:02)
--- NOTE | 2016-08-31 09:21 | CR ---
CLINICAL HISTORY: 81-year-old female with shortness of breath. INTERPRETATION: Chronic cardiomegaly unchanged considering differences in film technique since 7 Ma y 2016. Cardiac pacemaker leads intact (external manager monitoring leads). No cephalization of vascular flow, signs of alveolar edema or dependent pleural effusion. No lung mass, hilar lymphadenopathy or focal lobar pneumonia. No atelectasis/collapse. No pneumothor ax. CONCLUSION: No acute new cardiopulmonary abnormality.
--- NOTE | 2016-08-31 10:24 | PCM.PN ---
- General Info Date of Service: 08/31/16 Admission Dx/Problem (Free Text): Admission Diagnosis/Problem Admission Diagnosis/Problem Afib, Atrial fibrillation, shortness of breath Subjective Update: patient states that she feels blood pressure this morning however she still complained of shortness of breath but only before her nebulizer treatment is due. She has not been ambulating. her congestive cough improved. Her headache, upset stomach, nausea, anxiousness all improved. She denies fever, chills, chest pain, vomiting. she had over a 6 L of urine output since yesterday after being started on Lasix. albuterol nebulizer is helping her shortness of breath for short time - Review of Systems General: Reports: No Symptoms HEENT: Reports: no symptoms Pulmonary: Denies: pleuritic chest pain, hemoptysis, wheezing Cardiovascular: Reports: No Symptoms Gastrointestinal: Reports: No symptoms Genitourinary: Reports: no symptoms - Patient Data Vitals - most recent: Last Vital Signs Temp 36.8 C 08/31/16 07:41 Pulse 86 08/31/16 08:39 Resp 20 08/31/16 07:41 BP 89/51 L 08/31/16 08:39 Pulse Ox 92 L 08/31/16 07:41 Weight - most recent: 57.623 kg I&O - last 24 hours: Intake & Output 08/30/16 08/31/16 08/31/16 22:59 06:59 14:59 Intake Total 770 100 Output Total 3700 1000 Balance -2930 100 -1000 Lab Results last 24 hrs: Laboratory Results - last 24 hr 08/30/16 08/30/16 08/31/16 Range/Units 06:00 06:00 05:57 PT (9.0-12.0) SEC INR (0.9-1.2) Sodium 137 (135-145) mmol/L Potassium 3.8 (3.6-5.0) mmol/L Chloride 95 L (101-111) mmol/L Carbon Dioxide 33.0 H (21.0-31.0) mmol/L Anion Gap 12.8 BUN 18 (7-18) mg/dL Creatinine 0.8 (0.6-1.3) mg/dL Est Cr Clr Drug Dosing 53.63 mL/min Estimated GFR (MDRD) > 60 Glucose 148 H (74-105) mg/dL Calcium 9.1 (8.4-10.2) mg/dl Troponin I < 0.02 (0.00-0.02) ng/ml B-Natriuretic Peptide 221 H (0-100) pg/ml TSH, Ultra Sensitive 0.48 (0.35-7.0) uIu/mL 08/31/16 Range/Units 05:57 PT 36.5 H (9.0-12.0) SEC INR 3.6 H (0.9-1.2) Sodium (135-145) mmol/L Potassium (3.6-5.0) mmol/L Chloride (101-111) mmol/L Carbon Dioxide (21.0-31.0) mmol/L Anion Gap BUN (7-18) mg/dL Creatinine (0.6-1.3) mg/dL Est Cr Clr Drug Dosing mL/min Estimated GFR (MDRD) Glucose (74-105) mg/dL Calcium (8.4-10.2) mg/dl Troponin I (0.00-0.02) ng/ml B-Natriuretic Peptide (0-100) pg/ml TSH, Ultra Sensitive (0.35-7.0) uIu/mL Med Orders - Current: Current Medications Acetaminophen (Tylenol) 650 mg PO Q4H PRN PRN Reason: Pain (Mild 1-3)/fever Last Admin: 08/29/16 21:07 Dose: 650 mg Albuterol (Proventil Neb Soln) 2.5 mg NEB Q6HRRT [facility] Last Admin: 08/31/16 07:22 Dose: 2.5 mg Albuterol (Proventil Neb Soln) 2.5 mg NEB Q2H PRN PRN Reason: Shortness of Breath Last Admin: 08/30/16 15:13 Dose: 2.5 mg Budesonide (Pulmicort) 0.5 mg NEB BIDRT [facility] Last Admin: 08/31/16 07:22 Dose: 0.5 mg Digoxin (Lanoxin) 125 mcg PO DAILY [facility] Last Admin: 08/31/16 08:34 Dose: 125 mcg Docusate Sodium (Colace) 100 mg PO BID PRN PRN Reason: Constipation Furosemide (Lasix) 20 mg PO DAILY [facility] Last Admin: 08/31/16 08:34 Dose: 20 mg Guaifenesin (Mucinex) 600 mg PO TID PRN PRN Reason: Cough Ceftriaxone Sodium 1 gm/ (Sodium Chloride) 50 mls @ 100 mls/hr IV Q24H [facility] Last Admin: 08/30/16 11:50 Dose: 100 mls/hr Levothyroxine Sodium (Levothyroxine) 112 mcg PO ACBRK [facility] Last Admin: 08/31/16 07:11 Dose: 112 mcg Lisinopril (Prinivil) 10 mg PO DAILY [facility] Last Admin: 08/31/16 08:40 Dose: Not Given Lorazepam (Ativan) 0.5 mg PO Q6H PRN PRN Reason: Anxiety Last Admin: 08/30/16 11:16 Dose: 0.5 mg Methylprednisolone Sodium Succinate (Solu-Medrol) 125 mg IVPUSH Q12HR [facility] Last Admin: 08/31/16 08:41 Dose: 125 mg Metoprolol Succinate (Toprol Xl) 100 mg PO DAILY [facility] Last Admin: 08/31/16 08:39 Dose: Not Given No Warfarin Today () 0 each PO ONETIME ONE Stop: 08/31/16 14:01 Ondansetron HCl (Zofran Odt) 4 mg PO Q6H PRN PRN Reason: nausea, able to take PO Last Admin: 08/30/16 02:39 Dose: 4 mg Simvastatin (Zocor) 20 mg PO DAILY [facility] Last Admin: 08/31/16 08:35 Dose: 20 mg Sodium Chloride (Saline Flush) 10 ml FLUSH ASDIRECTED PRN PRN Reason: Keep Vein Open Last Admin: 08/31/16 08:41 Dose: 10 ml Spironolactone (Aldactone) 25 mg PO DAILY [facility] Last Admin: 08/31/16 08:34 Dose: 25 mg Warfarin Sodium (Pharmacy To Dose - Warfarin) 1 dose .XX ASDIRECTED [facility] Zolpidem Tartrate (Ambien) 5 mg PO BEDTIME PRN PRN Reason: Sleep Discontinued Medications Albuterol (Proventil Neb Soln) 2.5 mg NEB Q4HRRT PRN PRN Reason: Dyspnea Last Admin: 08/29/16 05:39 Dose: 2.5 mg Albuterol (Proventil Neb Soln) 2.5 mg NEB QIDRT PRN PRN Reason: Dyspnea Last Admin: 05/08/17 07:34 Dose: 2.5 mg Diltiazem HCl (Diltiazem) 10 mg IVPUSH ONETIME ONE Stop: 08/29/16 01:37 Last Admin: 08/29/16 01:39 Dose: 10 mg Furosemide (Lasix) 40 mg IVPUSH Q8H [facility] Stop: 08/31/16 03:01 Last Admin: 08/31/16 03:54 Dose: Not Given Diltiazem HCl 100 mg/ Sodium (Chloride) 100 mls @ 5 mls/hr IV TITRATE EMMETT; 5 MG /HR PRN Reason: Protocol Last Admin: 08/29/16 02:00 Dose: 5 mls/hr Sodium Chloride (Normal Saline) 1,000 mls @ 50 mls/hr IV ASDIRECTED [facility] Last Infusion: 08/29/16 22:16 Dose: Infused Levothyroxine Sodium (Levothyroxine) 112 mcg PO DAILY [facility] Non-Formulary Medication (Metoprolol Succinate [Metoprolol Succinate]) 100 mg PO DAILY [facility] Last Admin: 08/29/16 10:36 Dose: Not Given Non-Formulary Medication (Simvastatin [Simvastatin]) 20 mg PO DAILY [facility] Last Admin: 08/29/16 10:36 Dose: Not Given Warfarin Sodium (Pharmacy To Dose - Warfarin) 1 dose .XX ASDIRECTED [facility] Warfarin Sodium (Coumadin) 6 mg PO ONETIME ONE Stop: 08/29/16 14:01 Last Admin: 08/29/16 13:20 Dose: 6 mg Warfarin Sodium (Coumadin) 6 mg PO ONETIME ONE Stop: 08/30/16 14:01 Last Admin: 08/30/16 13:34 Dose: 6 mg - Exam General: alert, oriented, cooperative, no acute distress (she looks much better today). No: moderate distress, severe distress, sedated, lethargic, obtunded HEENT: Pupils equal, Pupils reactive, EOMI, Mucous membr. moist/pink Neck: supple, trachea midline, no JVD Lungs: Normal respiratory effort, Decreased breath sounds (globally mostly in the bases but fair air exchange), Rhonchi, Wheezing (mild, sporadic, expiratory) . No: Crackles, Rales, Rub, Stridor Cardiovascular: Regular Rate, Regular Rhythm Abdomen: bowel sounds present, soft, no tenderness, no distension (Female) Exam: Deferred Back Exam: normal inspection, full range of motion Extremities: normal pulses, no tenderness/swelling, no clubbing, no cyanosis, no calf tenderness, calf tenderness, edema (trace bilateral lower extremity edema) Neurological: no new focal deficit, normal speech Psy/Mental Status: alert, normal affect, normal mood. No: anxious, depressed, agitated, suicidal ideation, homicidal ideation, hallucinations, withdrawal symptoms - Problem List Review Problem List Initiated/Reviewed/Updated: Yes - My Orders Last 24 Hours: My Active Orders 08/30/16 10:40 Consult to Pharmacy [CONS] Routine 08/30/16 10:43 LORazepam [Ativan] 0.5 mg PO Q6H PRN 08/30/16 10:45 Albuterol [Proventil Neb Soln] 2.5 mg NEB Q6HRRT methylPREDNISolone Sod Succ [Solu-MEDROL] 125 mg IVPUSH Q12HR 08/30/16 10:50 Intake and Output Strict [RC] Q6H Weight Daily [Height and Weight] [RC] 06 08/30/16 11:00 cefTRIAXone [Rocephin] 1 gm Sodium Chloride 0.9% [Normal Saline] 50 ml IV Q24H 08/30/16 11:16 Albuterol [Proventil Neb Soln] 2.5 mg NEB Q2H PRN 08/30/16 11:17 RT Aerosol Therapy [RC] ASDIRECTED guaiFENesin [Mucinex] 600 mg PO TID PRN 08/30/16 17:59 Antiembolic Devices [RC] 08,20 PHILIP Hose [Antiembolic Hose] [OM.PC] Routine 08/30/16 Lunch Fluid Restriction [DIET] Sodium Restricted Diet [DIET] 08/31/16 14:00 Non-Formulary Medication [NF Drug] 0 each PO ONETIME ONE - Plan Plan:: Rapid atrial fibrillation with RVR Treated with Cardizem drip, heart rate has improved, Cardizem was stopped on due to decrease in systolic blood pressure Continue metoprolol for rate control if the blood pressure is okay Continue with digoxin for rate control Continue dosing Coumadin per pharmacy Monitor INR daily, adjust Coumadin for target INR 2-3 repeated troponin is negative -today heart rate is between 80 and 90 Probable acute on chronic congestive systolic heart failure last echocardiogram was done last April which showed ejection fraction o< 25% -Lasix 40 mg IV every 8 hours for 3 doses was started on 08/30/16 daily Weight Strict I&O was Fluid restriction to 1800 cc per hour low-sodium diet 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 as 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 after discharge -I'll increase her oral Lasix from 20 to 40 mg daily starting tomorrow Acute hypoxemic respiratory failure with probable acute exacerbation of COPD chest x-ray shows no acute findings on admission Likely due to rapid atrial fibrillation and/or congestive heart failure and/or COPD exacerbation patient was advised to quit smoking nasal oxygen as needed repeated chest x-ray on 08/31/16 did not show acute changes -IV steroids and empirical ceftriaxone for possible acute exacerbation of COPD were started on 08/30/16 -albuterol nebulizer every 6 hours scheduled in addition to albuterol nebulizer every 2 hours as needed -continue Pulmicort ( was started on admission) -I'll change IV steroids to oral prednisone today Supratherapeutic INR Coumadin dosing is managed by pharmacy sinus congestion And upper respiratory tract infection Start IV ceftriaxone saline nasal spray p.r.n. anxiousness Ativan as needed Dyslipidemia Zocor Hypothyroidism Treatment Synthroid DVT prophylaxis with full dose anticoagulation with Coumadin
[2016-08-31] MEDS ORDERED: Potassium Chloride 10 MEQ Tab.ER PO ONE (10:30)
[2016-08-31] MEDS ORDERED: Sodium Chloride 0.65% Nasal Spray 45 ML Bottle NAS PRN (10:34)
[2016-08-31] MEDS: cefTRIAXone 1 GM in Sodium Chloride 0.9% 50 ML IV SCH (11:03)
[2016-08-31] MEDS ORDERED: Metoprolol Tartrate 25 MG Tab PO ONE (19:23)
[2016-08-31] MEDS: predniSONE 20 MG Tab PO SCH (20:14)
[2016-09-01] MEDS: Albuterol 0.083% 2.5 MG/3 ML Neb Soln NEB SCH ×4 (01:07→18:01)
[2016-09-01] MEDS: Levothyroxine 112 MCG Tab PO SCH (05:05)
[2016-09-01 06:44] LABS: CHLORIDE,CL 98 mmol/L (101-111); SODIUM,NA 138 mmol/L (135-145)
[2016-09-01] MEDS: Budesonide 0.5 MG/2 ML Neb Susp NEB SCH ×2 (07:11→18:01)
[2016-09-01] MEDS: predniSONE 20 MG Tab PO SCH (08:57)
[2016-09-01] MEDS: Simvastatin 10 MG Tab PO SCH (08:58)
[2016-09-01] MEDS: Furosemide 40 MG Tab PO SCH (08:58)
[2016-09-01] MEDS: Spironolactone 25 MG Tab PO SCH (08:58)
[2016-09-01] MEDS: Lisinopril 10 MG Tab PO SCH (09:08)
[2016-09-01] MEDS: Digoxin 125 MCG Tab PO SCH (09:09)
[2016-09-01] MEDS: Metoprolol Succinate 50 MG Tab.ER PO SCH (09:09)
[2016-09-01] MEDS: Acetaminophen 325 MG Tab PO PRN (09:10)
--- NOTE | 2016-09-01 09:58 | PCM.PN ---
- General Info Date of Service: 09/01/16 Admission Dx/Problem (Free Text): Admission Diagnosis/Problem Admission Diagnosis/Problem Afib, Atrial fibrillation, shortness of breath Subjective Update: patient states that she feels better this morning. she denies trespassing when she goes to the bathroom. She has not been ambulating in hallway. Her congestive cough improved. Her headache, upset stomach, nausea, anxiousness all result. She denies fever, chills, chest pain, vomiting. albuterol nebulizer is helping her shortness of breath - Patient Data Vitals - most recent: Last Vital Signs Temp 36.8 C 09/01/16 07:24 Pulse 105 H 09/01/16 09:09 Resp 20 09/01/16 07:24 BP 108/53 L 09/01/16 09:09 Pulse Ox 92 L 09/01/16 07:24 Weight - most recent: 58.332 kg I&O - last 24 hours: Intake & Output 08/31/16 09/01/16 09/01/16 22:59 06:59 14:59 Intake Total 200 300 Balance 200 300 Lab Results last 24 hrs: Laboratory Results - last 24 hr 09/01/16 09/01/16 Range/Units 05:48 05:48 PT 32.0 H (9.0-12.0) SEC INR 3.2 H (0.9-1.2) Sodium 138 (135-145) mmol/L Potassium 4.1 (3.6-5.0) mmol/L Chloride 98 L (101-111) mmol/L Carbon Dioxide 32.0 H (21.0-31.0) mmol/L Anion Gap 12.1 BUN 29 H (7-18) mg/dL Creatinine 0.8 (0.6-1.3) mg/dL Est Cr Clr Drug Dosing 50.79 mL/min Estimated GFR (MDRD) > 60 Glucose 141 H (74-105) mg/dL Calcium 9.0 (8.4-10.2) mg/dl Man Results last 24 hrs: Microbiology 09/01/16 04:30 Gram Stain - Final Sputum - Expectorated Med Orders - Current: Current Medications Acetaminophen (Tylenol) 650 mg PO Q4H PRN PRN Reason: Pain (Mild 1-3)/fever Last Admin: 09/01/16 09:10 Dose: 650 mg Albuterol (Proventil Neb Soln) 2.5 mg NEB Q6HRRT [facility] Last Admin: 09/01/16 07:11 Dose: 2.5 mg Albuterol (Proventil Neb Soln) 2.5 mg NEB Q2H PRN PRN Reason: Shortness of Breath Last Admin: 08/30/16 15:13 Dose: 2.5 mg Amiodarone HCl (Cordarone) 400 mg PO BID [facility] Budesonide (Pulmicort) 0.5 mg NEB BIDRT [facility] Last Admin: 09/01/16 07:11 Dose: 0.5 mg Digoxin (Lanoxin) 125 mcg PO DAILY [facility] Last Admin: 09/01/16 09:09 Dose: 125 mcg Docusate Sodium (Colace) 100 mg PO BID PRN PRN Reason: Constipation Last Admin: 08/31/16 14:05 Dose: 100 mg Furosemide (Lasix) 40 mg PO DAILY [facility] Last Admin: 09/01/16 08:58 Dose: 40 mg Guaifenesin (Mucinex) 600 mg PO TID PRN PRN Reason: Cough Ceftriaxone Sodium 1 gm/ (Sodium Chloride) 50 mls @ 100 mls/hr IV Q24H [facility] Last Admin: 08/31/16 11:03 Dose: 100 mls/hr Levothyroxine Sodium (Levothyroxine) 112 mcg PO ACBRK [facility] Last Admin: 09/01/16 05:05 Dose: 112 mcg Lisinopril (Prinivil) 10 mg PO DAILY [facility] Last Admin: 09/01/16 09:08 Dose: Not Given Lorazepam (Ativan) 0.5 mg PO Q6H PRN PRN Reason: Anxiety Last Admin: 08/30/16 11:16 Dose: 0.5 mg Metoprolol Succinate (Toprol Xl) 100 mg PO DAILY [facility] Last Admin: 09/01/16 09:09 Dose: 100 mg Ondansetron HCl (Zofran Odt) 4 mg PO Q6H PRN PRN Reason: nausea, able to take PO Last Admin: 08/30/16 02:39 Dose: 4 mg Prednisone (Prednisone) 40 mg PO WITHBREAKFAST [facility] Stop: 09/03/16 08:01 Last Admin: 09/01/16 08:57 Dose: 40 mg Simvastatin (Zocor) 20 mg PO DAILY [facility] Last Admin: 09/01/16 08:58 Dose: 20 mg Sodium Chloride (Saline Flush) 10 ml FLUSH ASDIRECTED PRN PRN Reason: Keep Vein Open Last Admin: 08/31/16 11:02 Dose: 10 ml Sodium Chloride ([place] Nasal [place]) 0 ml KALA Q2H PRN PRN Reason: nasal congestion Spironolactone (Aldactone) 25 mg PO DAILY [facility] Last Admin: 09/01/16 08:58 Dose: 25 mg Warfarin Sodium (Pharmacy To Dose - Warfarin) 1 dose .XX ASDIRECTED [facility] Warfarin Sodium (Pharmacy To Dose - Warfarin) 0 dose PO ONETIME ONE Stop: 09/01/16 14:01 Zolpidem Tartrate (Ambien) 5 mg PO BEDTIME PRN PRN Reason: Sleep Discontinued Medications Albuterol (Proventil Neb Soln) 2.5 mg NEB Q4HRRT PRN PRN Reason: Dyspnea Last Admin: 08/29/16 05:39 Dose: 2.5 mg Albuterol (Proventil Neb Soln) 2.5 mg NEB QIDRT PRN PRN Reason: Dyspnea Last Admin: 08/30/16 07:34 Dose: 2.5 mg Diltiazem HCl (Diltiazem) 10 mg IVPUSH ONETIME ONE Stop: 08/29/16 01:37 Last Admin: 08/29/16 01:39 Dose: 10 mg Furosemide (Lasix) 20 mg PO DAILY [facility] Last Admin: 08/31/16 08:34 Dose: 20 mg Furosemide (Lasix) 40 mg IVPUSH Q8H [facility] Stop: 08/31/16 03:01 Last Admin: 08/31/16 03:54 Dose: Not Given Diltiazem HCl 100 mg/ Sodium (Chloride) 100 mls @ 5 mls/hr IV TITRATE EMMETT; 5 MG /HR PRN Reason: Protocol Last Admin: 08/29/16 02:00 Dose: 5 mls/hr Sodium Chloride (Normal Saline) 1,000 mls @ 50 mls/hr IV ASDIRECTED [facility] Last Infusion: 08/29/16 22:16 Dose: Infused Levothyroxine Sodium (Levothyroxine) 112 mcg PO DAILY [facility] Methylprednisolone Sodium Succinate (Solu-Medrol) 125 mg IVPUSH Q12HR [facility] Last Admin: 08/31/16 08:41 Dose: 125 mg Metoprolol Tartrate (Lopressor) 12.5 mg PO ONETIME ONE Stop: 08/31/16 19:24 Last Admin: 08/31/16 19:44 Dose: 12.5 mg Non-Formulary Medication (Metoprolol Succinate [Metoprolol Succinate]) 100 mg PO DAILY [facility] Last Admin: 08/29/16 10:36 Dose: Not Given Non-Formulary Medication (Simvastatin [Simvastatin]) 20 mg PO DAILY [facility] Last Admin: 08/29/16 10:36 Dose: Not Given No Warfarin Today () 0 each PO ONETIME ONE Stop: 08/31/16 14:01 Last Admin: 08/31/16 13:59 Dose: Not Given Potassium Chloride (Klor-Con 10) 20 meq PO ONETIME ONE Stop: 08/31/16 10:31 Last Admin: 08/31/16 11:00 Dose: 20 meq Warfarin Sodium (Pharmacy To Dose - Warfarin) 1 dose .XX ASDIRECTED [facility] Warfarin Sodium (Coumadin) 6 mg PO ONETIME ONE Stop: 08/29/16 14:01 Last Admin: 08/29/16 13:20 Dose: 6 mg Warfarin Sodium (Coumadin) 6 mg PO ONETIME ONE Stop: 08/30/16 14:01 Last Admin: 08/30/16 13:34 Dose: 6 mg - Exam General: alert, oriented, cooperative, no acute distress. No: moderate distress , severe distress HEENT: Pupils equal, Pupils reactive, EOMI, Mucous membr. moist/pink Neck: supple, trachea midline, no JVD Lungs: Normal respiratory effort, Decreased breath sounds (but fair air exchange ), Wheezing. No: Crackles, Rales, Rhonchi Cardiovascular: Irregular Rhythm Abdomen: bowel sounds present, soft, no tenderness Extremities: no edema, normal pulses, no tenderness/swelling, no clubbing, no cyanosis, no calf tenderness Neurological: no new focal deficit Psy/Mental Status: alert, normal affect, normal mood - Problem List Review Problem List Initiated/Reviewed/Updated: Yes - My Orders Last 24 Hours: My Active Orders 08/31/16 10:34 Sodium Chloride 0.65% [[place] Nasal [place]] 0 ml KALA Q2H PRN 08/31/16 21:00 predniSONE 40 mg PO WITHBREAKFAST 09/01/16 09:00 Furosemide [Lasix] 40 mg PO DAILY 09/01/16 09:45 Amiodarone [Cordarone] 400 mg PO BID 09/01/16 14:00 Warfarin Pharmacy to Dose [Pharmacy to Dose - Warfarin] 0 dose PO ONETIME ONE - Plan Plan:: Rapid atrial fibrillation with RVR Treated with Cardizem drip, heart rate has improved, Cardizem was stopped on due to decrease in systolic blood pressure Continue metoprolol for rate control if the blood pressure is okay Continue with digoxin for rate control Continue dosing Coumadin per pharmacy Monitor INR daily, adjust Coumadin for target INR 2-3 repeated troponin is negative -Her heart rate is still going up to 145 -I consulted with Dr. Patel over the phone and he recommended starting amiodarone 400 mg twice a day for one week, then 400 mg daily for one week, then 200 mg daily Acute on chronic congestive systolic heart failure last echocardiogram was done last April which showed ejection fraction o< 25% Ahe recieved Lasix 40 mg IV every 8 hours for 3 doses. It was started on 08/30/16 daily Weight Strict I&O was Fluid restriction to 1800 cc per hour low-sodium diet I counseled her about following up with optical advisor as soon as possible after discharge -increase oral Lasix from 20 to 40 mg daily starting today Acute hypoxemic respiratory failure with probable acute exacerbation of COPD chest x-ray shows no acute findings on admission Likely due to rapid atrial fibrillation and/or congestive heart failure and/or COPD exacerbation patient was advised to quit smoking nasal oxygen as needed repeated chest x-ray on 08/31/16 did not show acute changes -IV steroids and empirical ceftriaxone for possible acute exacerbation of COPD were started on 08/30/16 -albuterol nebulizer every 6 hours scheduled in addition to albuterol nebulizer every 2 hours as needed -continue Pulmicort ( was started on admission) she was started on IV steroids on 08/30/16 and changed to prednisone 40 mg po on Supratherapeutic INR Coumadin dosing is managed by pharmacy sinus congestion and upper respiratory tract infection Started IV ceftriaxone saline nasal spray p.r.n. anxiousness Ativan as needed Dyslipidemia Zocor Hypothyroidism TSH is within normal range Treatment Synthroid DVT prophylaxis with full dose anticoagulation with Coumadin
[2016-09-01] MEDS: Amiodarone 200 MG Tab PO SCH ×2 (10:32→21:59)
[2016-09-01] MEDS: Sodium Chloride 0.9% 10 ML Syringe FLUSH PRN ×2 (11:37→12:08)
[2016-09-01] MEDS: cefTRIAXone 1 GM in Sodium Chloride 0.9% 50 ML IV SCH ×2 (11:38→11:39)
[2016-09-02] MEDS: Albuterol 0.083% 2.5 MG/3 ML Neb Soln NEB SCH ×2 (01:59→07:21)
[2016-09-02] MEDS: Levothyroxine 112 MCG Tab PO SCH (06:38)
[2016-09-02 06:40] LABS: CHLORIDE,CL 98 mmol/L (101-111); SODIUM,NA 137 mmol/L (135-145)
[2016-09-02] MEDS: Budesonide 0.5 MG/2 ML Neb Susp NEB SCH (07:21)
[2016-09-02] MEDS: predniSONE 20 MG Tab PO SCH (09:48)
[2016-09-02] MEDS: Spironolactone 25 MG Tab PO SCH (09:48)
[2016-09-02] MEDS: Simvastatin 10 MG Tab PO SCH (09:49)
[2016-09-02] MEDS: Amiodarone 200 MG Tab PO SCH (09:49)
[2016-09-02] MEDS: Furosemide 40 MG Tab PO SCH (09:49)
[2016-09-02] MEDS: Digoxin 125 MCG Tab PO SCH (09:53)
[2016-09-02] MEDS: Lisinopril 10 MG Tab PO SCH (09:55)
[2016-09-02] MEDS: Metoprolol Succinate 50 MG Tab.ER PO SCH (09:56)
--- NOTE | 2016-09-02 10:00 | PCM.DCSUM1 ---
Discharge Summary - Hospital Course Free Text/Narrative:: 81 year-old patient with the history of nonischemic cardiomyopathy, systolic congestive heart failure, atrial fibrillation,. She has been having mild sore throat and nasal drainage. Her had similar symptoms. She had no fever. the night before admission she developed sudden onset of moderate to severe shortness of breath, associated with palpitation. she had no chest pain, no lightheadedness. The patient was seen by ambulance crew noted to have rapid atrial fibrillation. She was noted to have hypoxemia and was started on CPAP. In the ER the patient was started on Cardizem drip and the heart rate has improved. Fabiola, admission showed WBC 5.0. INR 2.3. PH 7.36. ABG pCO2 49. Sodium 139. Potassium 3.7. Carbon dioxide 30.0. Anion gap 9.7.troponin 0.02. BNP 175.digoxin level 0.8. next day patient blood pressure became low and so Cardizem drip was stopped. However he was found to have fluid overload so Lasix IV started also COPD treatment was initiated and patient felt much better. Patient lost about 9 pounds during hospitalization so she went back to her normal weight. Despite that she continued to have rapid heart rate social was started on amiodarone p.o. since yesterday patient has been feeling much better and her heart rate is controlled. This morning she states she feels 100% better and she is back to her normal period. She declined to stay at the hospital for one more day or being evaluated for swing bed to get stronger and she wanted to go home today care of her who is sick. She seems strong enough to go home safely. she'll be sent on home medication. I increased her Lasix from 20- 40 mg p.o. daily. She'll continue on Budesonide and albuterol nebulizer, and Vantin. she received 4 days of systemic steroids. her INR was elevated so her Coumadin was held. Today her INR is 1.9. I'll resume her home dose of Coumadin and she will check INR next Tuesday and report to her prior care provider Plan of care during hospitalization: Rapid atrial fibrillation with RVR Treated with Cardizem drip, heart rate has improved, Cardizem was stopped on due to decrease in systolic blood pressure Continue metoprolol for rate control if the blood pressure is okay Continue with digoxin for rate control Continue dosing Coumadin per pharmacy Monitor INR daily, adjust Coumadin for target INR 2-3 repeated troponin is negative I consulted with Dr. Patel over the phone and he recommended starting amiodarone 400 mg twice a day for one week, then 400 mg daily for one week, then 200 mg daily Acute on chronic congestive systolic heart failure last echocardiogram was done last April which showed ejection fraction o< 25% Ahe recieved Lasix 40 mg IV every 8 hours for 3 doses. It was started on 08/30/16 daily Weight Strict I&O was Fluid restriction to 1800 cc per hour low-sodium diet I counseled her about following up with human resources vice president as soon as possible after discharge increase oral Lasix from 20 to 40 mg daily Acute hypoxemic respiratory failure with probable acute exacerbation of COPD chest x-ray shows no acute findings on admission Likely due to rapid atrial fibrillation and/or congestive heart failure and/or COPD exacerbation patient was advised to quit smoking nasal oxygen as needed repeated chest x-ray on 08/31/16 did not show acute changes empirical ceftriaxone for possible acute exacerbation of COPD was started on 08/30 -albuterol nebulizer every 6 hours scheduled in addition to albuterol nebulizer every 2 hours as needed -continue Pulmicort ( was started on admission) she was started on IV steroids on 08/30/16 and changed to prednisone 40 mg po on Supratherapeutic INR, resolved Coumadin dosing is managed by pharmacy sinus congestion and upper respiratory tract infection Started IV ceftriaxone saline nasal spray p.r.n. anxiousness Ativan as needed Dyslipidemia Zocor Hypothyroidism TSH is within normal range Treatment Synthroid DVT prophylaxis with full dose anticoagulation with Coumadin 35 minutes were spent on discharging the patient - Discharge Data Discharge Date: 09/02/16 Discharge Disposition: Home, Self-Care 01 Condition: Good - Discharge Diagnosis/Problem(s) (1) Acute on chronic systolic (congestive) heart failure SNOMED Code(s): 144678889, 457864412 ICD Code: I50.23 - ACUTE ON CHRONIC SYSTOLIC (CONGESTIVE) HEART FAILURE Status: Acute Priority: High Current Visit: Yes (2) Acute respiratory failure with hypoxia SNOMED Code(s): 55003269, 422141216 ICD Code: J96.01 - ACUTE RESPIRATORY FAILURE WITH HYPOXIA Status: Resolved Priority: High Current Visit: Yes (3) COPD exacerbation SNOMED Code(s): 220138674, 744509133 ICD Code: J44.1 - CHRONIC OBSTRUCTIVE PULMONARY DISEASE W (ACUTE) EXACERBATION Status: Acute Priority: High Current Visit: Yes (4) Supratherapeutic INR SNOMED Code(s): 069992514, 852416968 ICD Code: R79.1 - ABNORMAL COAGULATION PROFILE Status: Resolved Current Visit: Yes (5) Subtherapeutic international normalized ratio (INR) SNOMED Code(s): 933319479 ICD Code: R79.1 - ABNORMAL COAGULATION PROFILE Status: Acute Current Visit: Yes (6) Upper respiratory infection SNOMED Code(s): 41489771 ICD Code: J06.9 - ACUTE UPPER RESPIRATORY INFECTION, UNSPECIFIED Status: Acute Priority: Low Current Visit: Yes (7) Anxiety SNOMED Code(s): 26549998 ICD Code: F41.9 - ANXIETY DISORDER, UNSPECIFIED Status: Acute Priority: Low Current Visit: Yes (8) Dyslipidemia SNOMED Code(s): 059534159 ICD Code: E78.5 - HYPERLIPIDEMIA, UNSPECIFIED Status: Chronic Current Visit: Yes (9) Hypothyroidism SNOMED Code(s): 49540412 ICD Code: E03.9 - HYPOTHYROIDISM, UNSPECIFIED Status: Chronic Current Visit: Yes (10) Atrial fibrillation with RVR SNOMED Code(s): 490796822739941 ICD Code: I48.91 - UNSPECIFIED ATRIAL FIBRILLATION Status: Acute Priority : High Current Visit: Yes - Patient Summary/Data Consults: Consultations 08/30/16 10:40 Consult to Pharmacy [CONS] Routine 09/01/16 09:51 Consult to Physical Therapy [PT Evaluation and Treatment] [CONS] Routine - Discharge Plan Prescriptions/Med Rec: Albuterol [IJD: Albuterol] 2.5 mg NEB Q6HRRT PRN 30 Days PRN Reason: shortness of breath, wheezing Amiodarone [Cordarone] 400 mg PO BID #40 tablet Budesonide [Pulmicort] 0.5 mg NEB BIDRT 30 Days Cefpodoxime [Vantin] 200 mg PO BID #14 tablet Furosemide [Lasix] 40 mg PO DAILY #30 tablet Home Medications: Home Meds Albuterol [Proair HFA] 2 oz PO QID PRN 06/13/14 [History] Digoxin 125 mcg PO DAILY 06/13/14 [History] Levothyroxine 112 mcg PO DAILY 06/13/14 [History] Lisinopril 10 mg PO DAILY 08/29/16 [History] Metoprolol Succinate 100 mg PO DAILY 08/29/16 [History] Simvastatin 20 mg PO DAILY 08/29/16 [History] Spironolactone [Aldactone] 25 mg PO DAILY 08/29/16 [History] Warfarin [Coumadin] 4 mg PO .TU.TH.SA 08/29/16 [History] Warfarin [Coumadin] 6 mg PO .ROD.MO.WE.FR 08/29/16 [History] Acetaminophen [Tylenol] 650 mg PO Q4H PRN #0 tablet 09/02/16 [Rx] Albuterol [IJD: Albuterol] 2.5 mg NEB Q6HRRT PRN 30 Days 09/02/16 [Rx] Amiodarone [Cordarone] 400 mg PO BID #40 tablet 09/02/16 [Rx] Budesonide [Pulmicort] 0.5 mg NEB BIDRT 30 Days 09/02/16 [Rx] Cefpodoxime [Vantin] 200 mg PO BID #14 tablet 09/02/16 [Rx] Furosemide [Lasix] 40 mg PO DAILY #30 tablet 09/02/16 [Rx] Referrals: Jhonny Howe MD [Primary Care Provider] - 09/06/16 Jett Zheng MD [Ordering Only Provider] - 09/09/16 - Discharge Summary/Plan Comment DC Time >30 min.: Yes (35 minutes were spent on discharging the patient) - General Info Date of Service: 09/02/16 Admission Dx/Problem (Free Text: Admission Diagnosis/Problem Admission Diagnosis/Problem Afib, Atrial fibrillation, shortness of breath - Review of Systems General: Reports: No Symptoms HEENT: Reports: no symptoms Pulmonary: Reports: no symptoms Cardiovascular: Reports: No Symptoms Gastrointestinal: Reports: No symptoms Genitourinary: Reports: no symptoms Musculoskeletal: Reports: no symptoms Skin: Reports: no symptoms Neurological: Reports: No Symptoms Psychiatric: Reports: no symptoms - Patient Data Vitals - Most Recent: Last Vital Signs Temp 36.1 C 09/02/16 07:50 Pulse 72 09/02/16 07:50 Resp 20 09/02/16 07:50 BP 102/59 L 09/02/16 07:50 Pulse Ox 92 L 09/02/16 07:50 Weight - Most Recent: 57.618 kg I&O - Last 24 hours: Intake & Output 09/01/16 09/02/16 09/02/16 22:59 06:59 14:59 Intake Total 100 100 325 Output Total 450 Balance -350 100 325 Lab Results - Last 24 hrs: Laboratory Results - last 24 hr 09/02/16 09/02/16 09/02/16 Range/Units 06:00 06:00 06:00 WBC 7.5 (5.0-10.0) 10^3/uL RBC 3.92 L (4.2-5.4) 10^6/uL Hgb 12.8 (12.0-16.0) g/dL Hct 39.2 (37.0-47.0) % MCV 100.0 (80-100) fL MCH 32.7 (27.0-34.0) pg MCHC 32.7 L (33.0-35.0) g/dL Plt Count 160 (150-450) 10^3/uL Neut % (Auto) 64.6 (42.2-75.2) % Lymph % (Auto) 22.7 (20.5-50.1) % [place] % (Auto) 12.6 H (2-8) % Eos % (Auto) 0.1 L (1.0-3.0) % Baso % (Auto) 0.0 (0.0-1.0) % PT 19.6 H (9.0-12.0) SEC INR 1.9 H (0.9-1.2) Sodium 137 (135-145) mmol/L Potassium 3.8 (3.6-5.0) mmol/L Chloride 98 L (101-111) mmol/L Carbon Dioxide 33.0 H (21.0-31.0) mmol/L Anion Gap 9.8 BUN 23 H (7-18) mg/dL Creatinine 0.6 (0.6-1.3) mg/dL Est Cr Clr Drug Dosing 67.72 mL/min Estimated GFR (MDRD) > 60 Glucose 94 (74-105) mg/dL Calcium 8.7 (8.4-10.2) mg/dl B-Natriuretic Peptide 125 H (0-100) pg/ml [place] Results - Last 24 hrs: Microbiology 09/01/16 04:30 Gram Stain - Final Sputum - Expectorated Sputum Culture - Preliminary Normal Maddy Med Orders - Current: Current Medications Acetaminophen (Tylenol) 650 mg PO Q4H PRN PRN Reason: Pain (Mild 1-3)/fever Last Admin: 09/01/16 09:10 Dose: 650 mg Albuterol (Proventil Neb Soln) 2.5 mg NEB Q6HRRT [facility] Last Admin: 09/02/16 07:21 Dose: 2.5 mg Albuterol (Proventil Neb Soln) 2.5 mg NEB Q2H PRN PRN Reason: Shortness of Breath Last Admin: 08/30/16 15:13 Dose: 2.5 mg Amiodarone HCl (Cordarone) 400 mg PO BID [facility] Last Admin: 09/01/16 21:59 Dose: 400 mg Budesonide (Pulmicort) 0.5 mg NEB BIDRT [facility] Last Admin: 09/02/16 07:21 Dose: 0.5 mg Digoxin (Lanoxin) 125 mcg PO DAILY [facility] Last Admin: 09/01/16 09:09 Dose: 125 mcg Docusate Sodium (Colace) 100 mg PO BID PRN PRN Reason: Constipation Last Admin: 08/31/16 14:05 Dose: 100 mg Furosemide (Lasix) 40 mg PO DAILY [facility] Last Admin: 09/01/16 08:58 Dose: 40 mg Guaifenesin (Mucinex) 600 mg PO TID PRN PRN Reason: Cough Ceftriaxone Sodium 1 gm/ (Sodium Chloride) 50 mls @ 100 mls/hr IV Q24H [facility] Last Admin: 09/01/16 11:39 Dose: 100 mls/hr Levothyroxine Sodium (Levothyroxine) 112 mcg PO ACBRK [facility] Last Admin: 09/02/16 06:38 Dose: 112 mcg Lisinopril (Prinivil) 10 mg PO DAILY [facility] Last Admin: 09/01/16 09:08 Dose: Not Given Lorazepam (Ativan) 0.5 mg PO Q6H PRN PRN Reason: Anxiety Last Admin: 08/30/16 11:16 Dose: 0.5 mg Metoprolol Succinate (Toprol Xl) 100 mg PO DAILY [facility] Last Admin: 09/01/16 09:09 Dose: 100 mg Ondansetron HCl (Zofran Odt) 4 mg PO Q6H PRN PRN Reason: nausea, able to take PO Last Admin: 08/30/16 02:39 Dose: 4 mg Prednisone (Prednisone) 40 mg PO WITHBREAKFAST [facility] Stop: 09/03/16 08:01 Last Admin: 09/01/16 08:57 Dose: 40 mg Simvastatin (Zocor) 20 mg PO DAILY [facility] Last Admin: 09/01/16 08:58 Dose: 20 mg Sodium Chloride (Saline Flush) 10 ml FLUSH ASDIRECTED PRN PRN Reason: Keep Vein Open Last Admin: 09/01/16 12:08 Dose: 10 ml Sodium Chloride ([place] Nasal [place]) 0 ml KALA Q2H PRN PRN Reason: nasal congestion Spironolactone (Aldactone) 25 mg PO DAILY [facility] Last Admin: 09/01/16 08:58 Dose: 25 mg Warfarin Sodium (Pharmacy To Dose - Warfarin) 1 dose .XX ASDIRECTED [facility] Zolpidem Tartrate (Ambien) 5 mg PO BEDTIME PRN PRN Reason: Sleep Discontinued Medications Albuterol (Proventil Neb Soln) 2.5 mg NEB Q4HRRT PRN PRN Reason: Dyspnea Last Admin: 08/29/16 05:39 Dose: 2.5 mg Albuterol (Proventil Neb Soln) 2.5 mg NEB QIDRT PRN PRN Reason: Dyspnea Last Admin: 08/30/16 07:34 Dose: 2.5 mg Diltiazem HCl (Diltiazem) 10 mg IVPUSH ONETIME ONE Stop: 08/29/16 01:37 Last Admin: 08/29/16 01:39 Dose: 10 mg Furosemide (Lasix) 20 mg PO DAILY [facility] Last Admin: 08/31/16 08:34 Dose: 20 mg Furosemide (Lasix) 40 mg IVPUSH Q8H EMMETT Stop: 08/31/16 03:01 Last Admin: 08/31/16 03:54 Dose: Not Given Diltiazem HCl 100 mg/ Sodium (Chloride) 100 mls @ 5 mls/hr IV TITRATE EMMETT; 5 MG /HR PRN Reason: Protocol Last Admin: 08/29/16 02:00 Dose: 5 mls/hr Sodium Chloride (Normal Saline) 1,000 mls @ 50 mls/hr IV ASDIRECTED [facility] Last Infusion: 08/29/16 22:16 Dose: Infused Levothyroxine Sodium (Levothyroxine) 112 mcg PO DAILY [facility] Methylprednisolone Sodium Succinate (Solu-Medrol) 125 mg IVPUSH Q12HR [facility] Last Admin: 08/31/16 08:41 Dose: 125 mg Metoprolol Tartrate (Lopressor) 12.5 mg PO ONETIME ONE Stop: 08/31/16 19:24 Last Admin: 08/31/16 19:44 Dose: 12.5 mg Non-Formulary Medication (Metoprolol Succinate [Metoprolol Succinate]) 100 mg PO DAILY [facility] Last Admin: 08/29/16 10:36 Dose: Not Given Non-Formulary Medication (Simvastatin [Simvastatin]) 20 mg PO DAILY [facility] Last Admin: 08/29/16 10:36 Dose: Not Given No Warfarin Today () 0 each PO ONETIME ONE Stop: 08/31/16 14:01 Last Admin: 08/31/16 13:59 Dose: Not Given Potassium Chloride (Klor-Con 10) 20 meq PO ONETIME ONE Stop: 08/31/16 10:31 Last Admin: 08/31/16 11:00 Dose: 20 meq Warfarin Sodium (Pharmacy To Dose - Warfarin) 1 dose .XX ASDIRECTED [facility] Warfarin Sodium (Coumadin) 6 mg PO ONETIME ONE Stop: 08/29/16 14:01 Last Admin: 08/29/16 13:20 Dose: 6 mg Warfarin Sodium (Coumadin) 6 mg PO ONETIME ONE Stop: 08/30/16 14:01 Last Admin: 08/30/16 13:34 Dose: 6 mg Warfarin Sodium (Pharmacy To Dose - Warfarin) 0 dose PO ONETIME ONE Stop: 09/01/16 14:01 Last Admin: 09/01/16 14:55 Dose: Not Given - Exam General: Reports: alert, oriented, cooperative, no acute distress. Denies: mild distress, moderate distress, severe distress, sedated, lethargic, obtunded HEENT: Reports: Pupils equal, Pupils reactive, EOMI, Mucous membr. moist/pink Neck: Reports: supple, trachea midline, no JVD Lungs: Reports: Normal respiratory effort. Denies: Crackles, Rales, Rhonchi, Rub, Stridor, Wheezing Cardiovascular: Reports: Irregular Rhythm. Denies: Bradycardia, Tachycardia Abdomen: Reports: bowel sounds present, soft, no tenderness, no distension (Female) Exam: Deferred Rectal (Female) Exam: Deferred Back Exam: Reports: normal inspection, full range of motion Extremities: Reports: no edema, normal pulses, no tenderness/swelling, no clubbing Skin: Reports: warm, dry, intact Neurological: Reports: no new focal deficit Psy/Mental Status: Reports: alert, normal affect, normal mood. Denies: anxious *Q Meaningful Use (DIS) - VTE *Q VTE Criteria *Q: - Stroke *Q Stroke Criteria *Q: - AMI *Q AMI Criteria *Q:
[2016-09-02] MEDS: Sodium Chloride 0.9% 10 ML Syringe FLUSH PRN ×2 (11:20→11:53)
[2016-09-02] MEDS: cefTRIAXone 1 GM in Sodium Chloride 0.9% 50 ML IV SCH (11:20)
[2016-09-02 11:28] VITALS: BP 104/61
[2016-09-02] MEDS ORDERED: Warfarin 2 MG Tab PO SCH (14:00)
--- NOTE | 2016-09-19 14:31 | EKG ---
08/29/2016 - ASAF PERALTA - EKG per my reading from 08/29/2016, shows atrial fibrillation with rapid ventricular rate. [facility] /[id number]
== END 2016-09-02 16:20 | disposition home or self-care (01) | DRG 308 ==
LOC: DL.ED 01:19 → UNDOADMIN 03:08 → DL.MS 03:08
PROVIDERS: ADMIT Internal Medicine; ATTEND Internal Medicine
DX: I48.91 Unspecified atrial fibrillation (principal); I50.23 Acute on chronic systolic (congestive) heart failure; J44.1 Chronic obstructive pulmonary disease with (acute) exacerbation; I42.9 Cardiomyopathy, unspecified; R79.1 Abnormal coagulation profile; J06.9 Acute upper respiratory infection, unspecified; F41.9 Anxiety disorder, unspecified; E78.5 Hyperlipidemia, unspecified; E03.9 Hypothyroidism, unspecified; Z79.01 Long term (current) use of anticoagulants; F17.210 Nicotine dependence, cigarettes, uncomplicated; R09.02 Hypoxemia
CPT/HCPCS: 36415; 36600; 71010; 80053; 80162; 82803; 83605; 83880; 84484; 85025; 85610; 87040 ×2; 93005; 93010; 94660; 96374; 99285 ×2; J7030; J7050; 71020; 80048; 84443; 87070; 87205; 94010; 94060; 94640; 94761; 97161-GP; A9270-GY; J0696; J1940; J2930; J3490; J7620-GY

== ENCOUNTER 2019-07-04 05:11 | Emergency (ER) | payer MEDICARE, BC ==
[2019-07-04 05:16] VITALS: BP 120/78; PULSE 120
--- NOTE | 2019-07-04 05:39 | EDM.PDOC ---
ED HPI GENERAL MEDICAL PROBLEM - General Chief Complaint: Respiratory Problem Stated Complaint: AMBULANCE-RESPIRATORY ISSUES Time Seen by Provider: 07/04/19 05:25 Source of Information: Reports: Patient History Limitations: Reports: No Limitations - History of Present Illness INITIAL COMMENTS - FREE TEXT/NARRATIVE: This 84 yo female patient was brought to the ED by [facility] due to increased shortness of breath. The patient reports she woke up this morning with increased shortness of breath. The patient reports she took a nebulizer treatment (Duoneb) while at home, used her inhaler and had another nebulizer treatment from the ambulance. The patient reports she is currently feeling better. The patient reports she has COPD and continues to smoke cigarettes. The patient reports she has no intention of quitting smoking. The patient also has a history of A fib. 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, Oxygen - Related Data Allergies Allergy/AdvReac Type Severity Reaction Status Date / Time No Known Allergies Allergy Verified 08/29/16 01:24 Home Meds: Home Meds Albuterol [Proair HFA] 2 oz PO QID PRN 06/13/14 [History] Digoxin 125 mcg PO DAILY 06/13/14 [History] Levothyroxine 112 mcg PO DAILY 06/13/14 [History] Lisinopril 10 mg PO DAILY 08/29/16 [History] Metoprolol Succinate 100 mg PO DAILY 08/29/16 [History] Simvastatin 20 mg PO DAILY 08/29/16 [History] Spironolactone [Aldactone] 25 mg PO DAILY 08/29/16 [History] Warfarin [Coumadin] 4 mg PO DAILY 08/29/16 [History] Albuterol [IJD: Albuterol] 2.5 mg NEB Q6HRRT PRN 30 Days nebule 09/02/16 [Rx] Furosemide [Lasix] 40 mg PO DAILY #30 tablet 09/02/16 [Rx] Albuterol/Ipratropium [DuoNeb 3.0-0.5 MG/3 ML] 3 ml .XX ASDIRECTED 07/04/19 [ History] Past Medical History Cardiovascular History: Reports: Bacterial Endocarditis, Heart Failure, Hypertension Respiratory History: Reports: None Genitourinary History: Reports: None [address] [facility] PILOT History: Reports: Musculoskeletal History: Reports: None Neurological History: Reports: None Psychiatric History: Reports: None Endocrine/Metabolic History: Reports: None Hematologic History: Reports: None Immunologic History: Reports: None Oncologic (Cancer) History: Reports: None Dermatologic History: Reports: None - Infectious Disease History Infectious Disease History: Reports: Chicken Pox, Measles, Mumps - Past Surgical History Respiratory Surgical History: Reports: None GI Surgical History: Reports: Cholecystectomy, Other (See Below) Female Surgical History: Reports: None Endocrine Surgical History: Reports: None Neurological Surgical History: Reports: None Musculoskeletal Surgical History: Reports: None Oncologic Surgical History: Reports: None Dermatological Surgical History: Reports: None Social & Family History - Family History Family Medical History: Noncontributory - Tobacco Use Smoking Status *Q: Current Every Day Smoker Years of Tobacco use: 70 Packs/Tins Daily: 1 Second Hand Smoke Exposure: Yes - Caffeine Use Caffeine Use: Reports: Coffee - Alcohol Use Days Per Week of Alcohol Use: 1 Number of Drinks Per Day: 2 Total Drinks Per Week: 2 - Recreational Drug Use Recreational Drug Use: No ED ROS GENERAL - Review of Systems Review Of Systems: Comprehensive ROS is negative, except as noted in HPI. ED EXAM, GENERAL - Physical Exam Exam: See Below Exam Limited By: No Limitations General Appearance: Alert, WD/WN, No Apparent Distress Eye Exam: Bilateral Eye: EOMI, Normal Inspection, PERRL Ears: Normal External Exam, Normal Canal, Hearing Grossly Normal, Normal TMs Nose: Normal Inspection, Normal Mucosa, No Blood Throat/Mouth: Normal Inspection, Normal Lips, Normal Teeth, Normal Gums, Normal Oropharynx, Normal Voice, No Airway Compromise Head: Atraumatic, Normocephalic Neck: Normal Inspection, Supple, Non-Tender, Full Range of Motion Respiratory/Chest: No Respiratory Distress, Lungs Clear, Normal Breath Sounds, No Accessory Muscle Use, Chest Non-Tender Cardiovascular: Normal Peripheral Pulses, Regular Rate, Rhythm, No Edema, No Gallop, No JVD, No Murmur, No Rub GI/Abdominal: Normal Bowel Sounds, Soft, Non-Tender, No Organomegaly, No Distention, No Abnormal Bruit, No Mass (Female) Exam: Deferred Rectal (Female) Exam: Deferred Back Exam: Normal Inspection, Full Range of Motion, NT Extremities: Normal Inspection, Normal Range of Motion, Non-Tender, Normal Capillary Refill, No Pedal Edema Neurological: Alert, Oriented, CN II-XII Intact, Normal Cognition, Normal Gait, Normal Reflexes, No Motor/Sensory Deficits Psychiatric: Normal Affect, Normal Mood Skin Exam: Warm, Dry, Intact, Normal Color, No Rash Lymphatic: No Adenopathy Course - Vital Signs Last Recorded V/S: Last Vital Signs Temp 36.7 C 07/04/19 05:15 Pulse 120 H 07/04/19 05:15 Resp 20 07/04/19 05:15 BP 120/78 07/04/19 05:15 Pulse Ox 94 L 07/04/19 05:34 - Orders/Labs/Meds Labs: Laboratory Tests 07/04/19 07/04/19 Range/Units 05:33 05:33 WBC 9.3 (5.0-10.0) 10^3/uL RBC 3.54 L (4.2-5.4) 10^6/uL Hgb 11.5 L (12.0-16.0) g/dL Hct 36.3 L (37.0-47.0) % MCV 102.5 H (80-100) fL MCH 32.5 (27.0-34.0) pg MCHC 31.7 L (33.0-35.0) g/dL Plt Count 179 (150-450) 10^3/uL Neut % (Auto) 82.9 H (42.2-75.2) % Lymph % (Auto) 8.4 L (20.5-50.1) % [place] % (Auto) 7.0 (2-8) % Eos % (Auto) 1.4 (1.0-3.0) % Baso % (Auto) 0.3 (0.0-1.0) % Sodium 143 (136-145) mmol/L Potassium 3.9 (3.5-5.1) mmol/L Chloride 103 (101-111) mmol/L Carbon Dioxide 33 H (21-32) mmol/L Anion Gap 10.9 (7-13) mEq/L BUN 19 H (7-18) mg/dL Creatinine 0.99 (0.55-1.02) mg/dL Est Cr Clr Drug Dosing 41.68 mL/min Estimated GFR (MDRD) 53 BUN/Creatinine Ratio 19.2 (No establ ref range) Glucose 132 H (74-99) mg/dL Calcium 8.3 L (8.5-10.1) mg/dL Total Bilirubin 0.3 (0.2-1.0) mg/dL AST 29 (15-37) U/L ALT 37 (14-59) U/L Alkaline Phosphatase 92 (46-116) U/L Total Protein 6.8 (6.4-8.2) g/dL Albumin 3.5 (3.4-5.0) g/dL Globulin 3.3 Albumin/Globulin Ratio 1.1 Meds: Medications Discontinued Medications Generic Name Dose Route Start Last Admin Trade Name Freq PRN Reason Stop Dose Admin Azithromycin 500 mg 07/04/19 06:09 Zithromax PO 07/04/19 06:10 ONETIME ONE Prednisone 40 mg 07/04/19 06:09 Prednisone PO 07/04/19 06:10 ONETIME ONE Departure - Departure Time of Disposition: 06:12 Disposition: Home, Self-Care 01 Condition: Fair Clinical Impression: COPD exacerbation - Discharge Information *PRESCRIPTION DRUG MONITORING PROGRAM REVIEWED*: Not Applicable *COPY OF PRESCRIPTION DRUG MONITORING REPORT IN PATIENT DEXTER: Not Applicable Instructions: Chronic Obstructive Pulmonary Disease Exacerbation, Gapm-dd-[id number] Forms: ED Department Discharge Care Plan Goals: The patient was advised of the examination results during the visit. The patient was given a dose of Prednisone (40 mg) and Azithromycin (500 mg) while in the ED. The patient was discharged with a script for Azithromycin (250 mg) # 4 to take 1 by mouth daily for 4 days (starting tomorrow) and Prednisone (20 mg ) #8 to take 2 by mouth daily (starting tomorrow). If the patient has any additional symptoms or concerns, the patient should either return to the emergency department or visit her primary care facility. Sepsis Event Note - Evaluation Sepsis Screening Result: No Definite Risk - Focused Exam Vital Signs: Vital Signs Temp Pulse Resp BP Pulse Ox Pulse Ox 07/04/19 05:34 94 L 07/04/19 05:15 36.7 C 120 H 20 120/78 98 Date Exam was Performed: 07/04/19 Time Exam was Performed: 06:12
[2019-07-04 05:54] LABS: ANION GAP 10.9 mEq/L (7-13)
[2019-07-04] MEDS ORDERED: Azithromycin 250 MG Tab PO ONE (06:09)
[2019-07-04] MEDS ORDERED: predniSONE 20 MG Tab PO ONE (06:09)
== END 2019-07-04 06:25 | disposition home or self-care (01) ==
LOC: DL.ED 05:11
DX: J44.1 Chronic obstructive pulmonary disease with (acute) exacerbation (principal); I11.0 Hypertensive heart disease with heart failure; I50.9 Heart failure, unspecified; F17.210 Nicotine dependence, cigarettes, uncomplicated; Z79.01 Long term (current) use of anticoagulants; Z79.899 Other long term (current) drug therapy
CPT/HCPCS: 36415; 71046; 80053; 85025; 99285; A9270; 99284

== ENCOUNTER 2021-05-23 22:05 | Emergency (ER) | payer MEDICARE, BC ==
[2021-05-23] MEDS ORDERED: methylPREDNISolone Sodium Succinate 125 MG/2 ML SDV IVPUSH ONE (22:14)
[2021-05-23 22:32] VITALS: BP 132/85; PULSE 114
[2021-05-23 22:51] LABS: ANION GAP 11.7 mEq/L (7-13); CHLORIDE,CL 97 mmol/L (98-107); SODIUM,NA 136 mmol/L (136-145)
[2021-05-23 23:19] LABS: CORONAVIRUS COVID-19 NAA POSITIVE (NEGATIVE)
== END 2021-05-24 00:58 | disposition home or self-care (01) ==
LOC: DL.ED 22:05
DX: U07.1 COVID-19 (principal); J44.0 Chronic obstructive pulmonary disease with (acute) lower respiratory infection; I48.20 Chronic atrial fibrillation, unspecified; I11.0 Hypertensive heart disease with heart failure; I50.9 Heart failure, unspecified; Z79.899 Other long term (current) drug therapy
CPT/HCPCS: 0240U; 36415; 71045; 80053; 80162; 83605; 83735; 83880; 84484; 85025; 85610; 93005; 93010; 96374; 99284; 99285-25; J2930

== ENCOUNTER 2021-06-26 00:44 | Emergency (ER) | payer MEDICARE, BC ==
[2021-06-26 01:34] VITALS: BP 114/70; PULSE 97
[2021-06-26 01:41] LABS: ANION GAP 9.8 mEq/L (7-13); CHLORIDE,CL 99 mmol/L (98-107); SODIUM,NA 139 mmol/L (136-145)
[2021-06-26] MEDS ORDERED: Cephalexin 500 MG Cap PO ONE (02:05)
== END 2021-06-26 02:10 | disposition home or self-care (01) ==
LOC: DL.ED 00:44
DX: L03.115 Cellulitis of right lower limb (principal); L03.116 Cellulitis of left lower limb; I11.0 Hypertensive heart disease with heart failure; I50.9 Heart failure, unspecified; Z79.899 Other long term (current) drug therapy
CPT/HCPCS: 36415; 71045; 80053; 83605; 83880; 84484; 85025; 85379; 85610; 87040; 93005; 99284; A9270

== ENCOUNTER 2021-08-11 14:01 | Emergency (ER) | payer MEDICARE, BC | END 2021-08-11 15:26 | disposition EXP | LOC: DL.ED 14:01 | DX: R09.2 Respiratory arrest (principal); J44.9 Chronic obstructive pulmonary disease, unspecified; I48.91 Unspecified atrial fibrillation; I11.0 Hypertensive heart disease with heart failure; I50.9 Heart failure, unspecified; Z95.0 Presence of cardiac pacemaker; Z79.01 Long term (current) use of anticoagulants; Z79.899 Other long term (current) drug therapy | CPT/HCPCS: 93010; 99285 ==